=== PATIENT | male | born 1930 | race Caucasian/White ===

== ENCOUNTER 2017-05-04 17:57 | Emergency (ER) | payer OTHER ==
[~2017-05-04] VITALS: Ht 167.6 cm; Wt 70.0 kg
[~2017-05-04 17:57] MED LIST: ASPI-515 PO; DIGO125T6 PO; GLUC1500 PO; LISI-170 PO; LISI1TAB5 PO; METO-95 PO; METO50TA82 PO; OXYC-302 PO; POLY17PO5 PO; TAMS0.4C2 PO; WARF2TAB PO; WARF2TAB7 PO; WARF4TAB PO
[2017-05-04 19:04] LABS: BLOOD UREA NITROGEN 23 mg/dL (7-18)
[2017-05-04] MEDS ORDERED: WARF2TAB PO (20:15)
[2017-05-05 00:08] VITALS: BP 155/62
== END 2017-05-05 00:18 | disposition home or self-care (01) ==
LOC: ED 23:40
DX: R10.9 Unspecified abdominal pain (principal); I10 Essential (primary) hypertension; I48.91 Unspecified atrial fibrillation; Z85.46 Personal history of malignant neoplasm of prostate; Z87.442 Personal history of urinary calculi; Z92.3 Personal history of irradiation
CPT/HCPCS: 36415; 72110; 74176; 80048; 80162; 81003; 82040; 85025; 85610; 99285

== ENCOUNTER → 2017-06-17 | Outpatient (CLI) | payer OTHER | END | disposition home or self-care (01) | LOC: EDSTATUS 10:00 → CFH 10:03 | PROVIDERS: ATTEND Internal Medicine Cardiovascular Disease | DX: I08.0 Rheumatic disorders of both mitral and aortic valves (principal); I48.91 Unspecified atrial fibrillation; I48.92 Unspecified atrial flutter; Z79.01 Long term (current) use of anticoagulants; Z87.891 Personal history of nicotine dependence; Z85.038 Personal history of other malignant neoplasm of large intestine; Z85.46 Personal history of malignant neoplasm of prostate | CPT/HCPCS: 93306 ==

== ENCOUNTER 2017-09-18 18:22 | Inpatient (IN) | payer OTHER ==
[~2017-09-18] VITALS: Ht 167.6 cm; Wt 69.0 kg
[2017-09-18] MEDS ORDERED: METO-93 PO (18:44)
[2017-09-18] MEDS ORDERED: SODIUM CHLORIDE FLUSH 10ML SYR IVF ONE (19:00)
[2017-09-18 19:09] LABS: HEMATOCRIT 47.1 % (39.2-51.8); WHITE BLOOD COUNT 8.6 x10^3/uL (3.4-10)
[2017-09-18 19:20] LABS: ASPARTATE AMINO TRANSFERASE 155 U/L (15-37); BLOOD UREA NITROGEN 26 mg/dL (7-18)
[2017-09-18 19:21] LABS: IS PT STATUS REG ER OR PRE ER? YES
[2017-09-18] MEDS ORDERED: WARFARIN 2 MG TABLET PO-COUM ONE (21:00)
[2017-09-18 23:00] VITALS: BP 161/85
[2017-09-18 23:06] VITALS: BP 165/83
[2017-09-18 23:08] VITALS: BP 150/79
[2017-09-19 03:00] VITALS: BP 131/78
[2017-09-19 07:56] VITALS: BP 132/77
[2017-09-19] MEDS ORDERED: SODIUM CHLORIDE FLUSH 10ML SYR IVF SCH (09:00)
[2017-09-19] MEDS ORDERED: DIGOXIN 0.125 MG TABLET PO SCH (09:00)
[2017-09-19 12:52] VITALS: BP 148/81
[2017-09-19] MEDS ORDERED: ACETAMINOPHEN 325 MG TABLET ONE (13:14)
[2017-09-19] MEDS ORDERED: ACETAMINOPHEN 325 MG TABLET PO PRN (13:30)
[2017-09-19] MEDS ORDERED: CARV3.122 PO (15:37)
[2017-09-19] MEDS ORDERED: WARFARIN 2 MG TABLET PO-COUM ONE (18:00)
== END 2017-09-19 16:41 | disposition home or self-care (01) | DRG 74 ==
LOC: ED 21:15 → EDIP 21:19 → 5SO 22:34 → DCLOUNGE 09-19 16:29
PROVIDERS: ADMIT Family Medicine; ATTEND Family Medicine
PROC: 0HQ0XZZ Repair Scalp Skin, External Approach (ICD-10-PCS; principal; 2017-09-18)
DX: G90.8 Other disorders of autonomic nervous system (principal); I48.91 Unspecified atrial fibrillation; S09.90XA Unspecified injury of head, initial encounter; I34.0 Nonrheumatic mitral (valve) insufficiency; R55 Syncope and collapse; I10 Essential (primary) hypertension; S05.11XA Contusion of eyeball and orbital tissues, right eye, initial encounter; W18.39XA Other fall on same level, initial encounter; T45.515A Adverse effect of anticoagulants, initial encounter; Y92.89 Other specified places as the place of occurrence of the external cause; Y93.89 Activity, other specified; Y99.8 Other external cause status; Z79.01 Long term (current) use of anticoagulants; Z82.3 Family history of stroke; Z85.038 Personal history of other malignant neoplasm of large intestine; Z98.49 Cataract extraction status, unspecified eye; Z80.9 Family history of malignant neoplasm, unspecified; Z90.89 Acquired absence of other organs; Z92.21 Personal history of antineoplastic chemotherapy; Z87.891 Personal history of nicotine dependence
CPT/HCPCS: 36415; 70450; 71010; 80053; 83735; 84443; 84484; 85025; 85610; 85730; 93005; 93306; 93880; 99285

== ENCOUNTER 2017-11-17 08:00 | Observation (INO) | payer OTHER ==
[~2017-11-17] VITALS: Ht 167.6 cm; Wt 71.4 kg
[~2017-11-17 08:00] MED LIST changes: +CARV3.122 PO; +METO-93 PO
[2017-11-17] MEDS: SODIUM CHLORIDE 0.9% 1,000 ML IV SCH ×2 (08:09→13:51)
[2017-11-17] MEDS ORDERED: CEFAZOLIN PMX 1GM/50ML 50 ML IVPB ONE (08:30)
[2017-11-17 08:39] VITALS: BP 167/88
[2017-11-17] MEDS ORDERED: DIGO125T PO (08:52)
[2017-11-17] MEDS ORDERED: TUMERIC PO (08:52)
[2017-11-17] MEDS ORDERED: METO-99 PO (08:54)
[2017-11-17] MEDS ORDERED: LISI-170 PO (08:57)
[2017-11-17] MEDS ORDERED: GLUC500T11 PO (08:58)
[2017-11-17] MEDS ORDERED: WARF4TAB PO (08:59)
[2017-11-17] MEDS ORDERED: PLEASE ENTER HEIGHT AND WEIGHT MC SCH (09:00)
[2017-11-17] MEDS ORDERED: CEFAZOLIN PMX 1GM/50ML 50 ML ONE (10:01)
[2017-11-17] MEDS ORDERED: FENTANYL PF 100 MCG/2ML ONE (10:01)
[2017-11-17] MEDS ORDERED: MIDAZOLAM 1 MG/ML, 2ML ONE (10:01)
[2017-11-17] MEDS ORDERED: LIDOCAINE 2%, 20ML ONE ×3 (10:01→16:46)
[2017-11-17] MEDS ORDERED: CEFAZOLIN 1,000 MG ONE (10:01)
[2017-11-17] MEDS ORDERED: LABETALOL 5MG/ML, 20ML ONE (11:50)
[2017-11-17] MEDS ORDERED: ACETAMINOPHEN 325 MG TABLET PO PRN (13:30)
[2017-11-17 14:54] VITALS: BP 152/93
[2017-11-17 19:26] VITALS: BP 155/83
[2017-11-17] MEDS ORDERED: ASPIRIN 81 MG TABLET EC PO SCH (21:00)
[2017-11-17] MEDS: CEFAZOLIN PMX 1GM/50ML 50 ML IVPB SCH (21:27)
[2017-11-17] MEDS: SODIUM CHLORIDE FLUSH 10ML SYR IVF SCH (21:27)
[2017-11-18] MEDS: SODIUM CHLORIDE 0.9% 1,000 ML IV SCH (00:09)
[2017-11-18 00:27] VITALS: BP 145/85
[2017-11-18] MEDS: CEFAZOLIN PMX 1GM/50ML 50 ML IVPB SCH (05:24)
[2017-11-18 07:27] VITALS: BP 175/90
[2017-11-18] MEDS ORDERED: HYDROcodone/APAP 5/325 TABLET PO ONE (08:00)
[2017-11-18] MEDS ORDERED: HYDROcodone/APAP 5/325 TABLET ONE (08:04)
[2017-11-18] MEDS: SODIUM CHLORIDE FLUSH 10ML SYR IVF SCH (08:07)
[2017-11-18] MEDS ORDERED: METOPROLOL TARTRATE 100 MG TABLET PO SCH (09:00)
[2017-11-18] MEDS ORDERED: TEMPLATE NON-FORMULARY MED. (Glucosamine Hcl** 1,000 MG) PO SCH (09:00)
[2017-11-18] MEDS ORDERED: DIGOXIN 0.125 MG TABLET PO SCH (09:00)
[2017-11-18] MEDS ORDERED: LISINOPRIL 20 MG TABLET PO SCH (09:00)
[2017-11-18] MEDS ORDERED: TUMERIC PO SCH (09:00)
[2017-11-18] MEDS ORDERED: PROMETHAZINE 25 MG/ML, 1ML IM PRN (10:00)
[2017-11-18] MEDS ORDERED: WARFARIN 2 MG TABLET PO-COUM SCH (18:00)
== END 2017-11-18 10:49 | disposition home or self-care (01) ==
LOC: CACL 08:00 → 5SO 12:40 → CACL 13:09 → DCLOUNGE 11-18 10:37
PROVIDERS: ADMIT Internal Medicine Cardiovascular Disease; ATTEND Internal Medicine Cardiovascular Disease
DX: I49.5 Sick sinus syndrome (principal); I48.91 Unspecified atrial fibrillation
CPT/HCPCS: 33207; 71045; 71046; 96365; 96375; 99156; 99157; C1769; C1779; C1786; C1892; G0378; J0690; J2250; J3010; J3490; Q9967

== ENCOUNTER 2018-03-09 08:46 | Emergency (ER) | payer OTHER ==
[~2018-03-09] VITALS: Ht 167.6 cm; Wt 68.2 kg
[~2018-03-09 08:46] MED LIST changes: +DIGO125T PO; -DIGO125T6 PO; +DIGO125T81 PO; -GLUC1500 PO; +GLUC15006 PO; +GLUC500T11 PO; +METO-99 PO; +TUMERIC PO; -WARF2TAB7 PO; +WARF2TAB99 PO
[2018-03-09 08:50] VITALS: BP 171/97
== END 2018-03-09 10:11 | disposition home or self-care (01) ==
LOC: ED 09:13
DX: S01.21XD Laceration without foreign body of nose, subsequent encounter (principal); X58.XXXD Exposure to other specified factors, subsequent encounter
CPT/HCPCS: 99282

== ENCOUNTER 2018-10-05 16:53 | Inpatient (IN) | payer OTHER ==
[~2018-10-05] VITALS: Ht 165.1 cm; Wt 72.2 kg
[2018-10-05] MEDS ORDERED: ONDANSETRON 2MG/ML, 2ML IVPush ONE (17:30)
[2018-10-05 18:06] LABS: MEAN CORPUSCULAR HEMOGLOBIN 30.8 pg (27.5-34.5); MEAN CORPUSCULAR VOLUME 90.7 fL (81-97); MEAN PLATELET VOLUME 8.1 fL (7.4-10.4); PLATELET COUNT 223 x10^3/uL (130-400); RED BLOOD COUNT 5.76 x10^6/uL (4.38-5.82); RED CELL DISTRIBUTION WIDTH 14.1 % (9.4-14.8)
[2018-10-05 18:07] LABS: MD YES
[2018-10-05 18:18] LABS: ALBUMIN 3.9 g/dL (3.4-5.0); ANION GAP 10 mmol/L (5-15); CHLORIDE 107 mmol/L (98-107)
[2018-10-05 18:22] LABS: ALANINE AMINOTRANSFERASE 23 U/L (12-78); ALKALINE PHOSPHATASE 107 U/L (45-117); BILIRUBIN,TOTAL 1.3 mg/dL (0.2-1.0); CREATINE KINASE, TOTAL 80 U/L (39-308); CREATININE 1.07 mg/dL (0.7-1.3); TOTAL PROTEIN 7.3 g/dL (6.4-8.2); TROPONIN I 0.015 ng/mL (0.000-0.045)
[2018-10-05 18:31] LABS: BAND#(MANUAL) 0.45 x10^3/uL; BANDS%(MANUAL) 3 % (0-7); BASOS#(MANUAL) 0.15 x10^3/uL (0-0.1); BASOS% (MANUAL) 1 % (0-1); LYMPHS% (MANUAL) 2 % (22-44); MONOS#(MANUAL) 0.15 x10^3/uL (0.3-2.7); MONOS% (MANUAL) 1 % (2-9); SEG#(MANUAL) 14.04 x10^3/uL (1.8-6.8); SEGS% (MANUAL) 93 % (42-75)
[2018-10-05 18:32] LABS: <PLATELET ESTIMATE> ADEQUATE; <PLT MORPHOLOGY> NORMAL PLT MORPH; <RBC MORPHOLOGY> NORMAL
[2018-10-05] MEDS ORDERED: SODIUM CHLORIDE 0.9% 1,000ML IVBOLUS ONE (19:00)
[2018-10-05] MEDS ORDERED: DILTIAZEM 125 MG in DEXTROSE 5% 100 ML IV SCH (19:06)
[2018-10-05 19:27] LABS: INTERNATIONAL NORMALIZED RATIO 1.56 (0.93-1.1); PROTHROMBIN TIME 16.3 Seconds (9.6-11.5)
[2018-10-05] MEDS ORDERED: OMNIPAQUE 350 MG/ML, 100ML BOTTLE ONE (19:28)
[2018-10-05] MEDS ORDERED: AZITHROMYCIN 500 MG in SODIUM CHLORIDE 0.9% 250 ML IV ONE (20:00)
[2018-10-05] MEDS ORDERED: CEFTRIAXONE PMX 1GM/50ML 50 ML IV ONE (20:00)
[2018-10-05] MEDS ORDERED: WARFARIN SODIUM 2 MG PO SCH (20:30)
[2018-10-05] MEDS ORDERED: ACETAMINOPHEN 325 MG TABLET PO PRN (20:30)
[2018-10-05] MEDS ORDERED: AZITHROMYCIN 500 MG in SODIUM CHLORIDE 0.9% 250 ML IV SCH (20:30)
[2018-10-05] MEDS ORDERED: ONDANSETRON ODT 4 MG PO PRN (20:30)
[2018-10-05] MEDS ORDERED: METOPROLOL TARTRATE 100 MG TABLET PO SCH (20:30)
[2018-10-05] MEDS ORDERED: ONDANSETRON 2MG/ML, 2ML IVPush PRN (20:30)
[2018-10-05] MEDS ORDERED: WARFARIN SODIUM 4 MG PO SCH (20:30)
[2018-10-05] MEDS ORDERED: CEFTRIAXONE PMX 1GM/50ML 50 ML ONE (20:48)
[2018-10-05] MEDS ORDERED: WARFARIN 3 MG TABLET PO-COUM ONE (21:30)
[2018-10-05 22:00] VITALS: BP 189/74
[2018-10-05] MEDS ORDERED: DILTIAZEM 125 MG in SODIUM CHLORIDE 0.9% 100 ML IV SCH (22:00)
[2018-10-05] MEDS ORDERED: hydrALAzine 20 MG/ML, 1ML IV PRN (22:00)
[2018-10-05] MEDS: SODIUM CHLORIDE 0.9% 1,000 ML IV SCH (22:07)
[2018-10-05] MEDS: ASPIRIN 81 MG TABLET EC PO SCH (22:08)
[2018-10-05] MEDS: METOPROLOL TARTRATE 25 MG TABLET PO SCH (22:08)
[2018-10-05 23:44] LABS: MICROSCOPIC AUTO
[2018-10-05 23:47] LABS: TROPONIN I 0.044 ng/mL (0.000-0.045)
[2018-10-05 23:48] LABS: CULTURE INDICATED? NO
[2018-10-06 00:05] VITALS: BP 105/64
[2018-10-06] MEDS: METOPROLOL TARTRATE 25 MG TABLET PO SCH ×4 (04:30→20:29)
[2018-10-06 04:43] VITALS: BP 108/65
[2018-10-06 05:05] LABS: ANION GAP 10 mmol/L (5-15); CALCIUM 7.4 mg/dL (8.5-10.1); CHLORIDE 109 mmol/L (98-107); CREATININE 1.14 mg/dL (0.7-1.3)
[2018-10-06 05:07] LABS: INTERNATIONAL NORMALIZED RATIO 1.86 (0.93-1.1); MD NO; MEAN CORPUSCULAR HEMOGLOBIN 30.8 pg (27.5-34.5); MEAN CORPUSCULAR HGB CONC 34.2 g/dL (33.2-36.2); PLATELET COUNT 233 x10^3/uL (130-400); PROTHROMBIN TIME 19.3 Seconds (9.6-11.5); RED BLOOD COUNT 4.82 x10^6/uL (4.38-5.82); RED CELL DISTRIBUTION WIDTH 14.4 % (9.4-14.8)
[2018-10-06 05:09] LABS: BASOPHILS # (AUTO) 0.01 x10^3/uL (0-0.1); BASOPHILS % (AUTO) 0 % (0-1); EOSINOPHILS % (AUTO) 0 % (1-7); LYMPHOCYTES # (AUTO) 0.64 x10^3/uL (1-3.4); LYMPHOCYTES % (AUTO) 5 % (22-44); MONOCYTES # (AUTO) 0.52 x10^3/uL (0.2-0.8); MONOCYTES % (AUTO) 4 % (2-9); NEUTROPHILS # (AUTO) 13.03 x10^3/uL (1.8-6.8); NEUTROPHILS % (AUTO) 92 % (42-75)
[2018-10-06 05:19] LABS: THYROID STIMULATING HORMONE 0.169 mIU/L (0.358-3.740)
[2018-10-06] MEDS ORDERED: DILTIAZEM 125 MG in SODIUM CHLORIDE 0.9% 100 ML IV SCH (06:00)
[2018-10-06 08:13] VITALS: BP 135/67
[2018-10-06] MEDS: DIGOXIN 0.125 MG TABLET PO SCH (08:35)
[2018-10-06] MEDS ORDERED: TUMERIC PO SCH (09:00)
[2018-10-06] MEDS ORDERED: TEMPLATE NON-FORMULARY MED. (Glucosamine Hcl** 1,000 MG) PO SCH (09:00)
[2018-10-06] MEDS: CEFTRIAXONE PMX 2GM/50ML 50 ML IV SCH (09:04)
[2018-10-06 10:08] LABS: CLOSTRIDIUM DIFFICILE ANTIGEN NEGATIVE; CLOSTRIDIUM DIFFICILE TOXIN NEGATIVE (Negative)
[2018-10-06] MEDS: SODIUM CHLORIDE 0.9% 1,000 ML IV SCH (11:18)
[2018-10-06] MEDS: DOXYCYCLINE 100 MG in DEXTROSE 5% 250 ML IV SCH (15:00)
[2018-10-06 15:14] VITALS: BP 171/70
[2018-10-06] MEDS ORDERED: WARFARIN 2 MG TABLET PO-COUM ONE (18:00)
[2018-10-06] MEDS: ASPIRIN 81 MG TABLET EC PO SCH (20:29)
[2018-10-06 20:34] VITALS: BP 153/66
[2018-10-06 20:51] VITALS: BP 147/80
[2018-10-07 01:29] VITALS: BP 153/80
[2018-10-07] MEDS: SODIUM CHLORIDE 0.9% 1,000 ML IV SCH ×2 (01:47→16:56)
[2018-10-07] MEDS: DOXYCYCLINE 100 MG in DEXTROSE 5% 250 ML IV SCH ×2 (03:04→14:02)
[2018-10-07] MEDS: METOPROLOL TARTRATE 25 MG TABLET PO SCH ×4 (03:05→19:30)
[2018-10-07 03:54] LABS: ANION GAP 7 mmol/L (5-15); CHLORIDE 111 mmol/L (98-107); CREATININE 0.96 mg/dL (0.7-1.3)
[2018-10-07 04:05] LABS: BASOPHILS % (AUTO) 0 % (0-1); EOSINOPHILS # (AUTO) 0.13 x10^3/uL (0-0.4); EOSINOPHILS % (AUTO) 1 % (1-7); LYMPHOCYTES # (AUTO) 0.85 x10^3/uL (1-3.4); LYMPHOCYTES % (AUTO) 8 % (22-44); MD NO; MEAN CORPUSCULAR HEMOGLOBIN 30.8 pg (27.5-34.5); MEAN CORPUSCULAR HGB CONC 33.9 g/dL (33.2-36.2); MEAN CORPUSCULAR VOLUME 90.9 fL (81-97); MONOCYTES # (AUTO) 0.83 x10^3/uL (0.2-0.8); MONOCYTES % (AUTO) 8 % (2-9); NEUTROPHILS # (AUTO) 8.28 x10^3/uL (1.8-6.8); NEUTROPHILS % (AUTO) 82 % (42-75); PLATELET COUNT 204 x10^3/uL (130-400); RED CELL DISTRIBUTION WIDTH 14.3 % (9.4-14.8)
[2018-10-07 04:22] LABS: INTERNATIONAL NORMALIZED RATIO 2.49 (0.93-1.1); PROTHROMBIN TIME 25.5 Seconds (9.6-11.5)
[2018-10-07 07:19] VITALS: BP 149/82
[2018-10-07] MEDS: CEFTRIAXONE PMX 2GM/50ML 50 ML IV SCH (08:37)
[2018-10-07] MEDS: DIGOXIN 0.125 MG TABLET PO SCH (09:36)
[2018-10-07 11:44] LABS: TROPONIN I 0.065 ng/mL (0.000-0.045)
[2018-10-07 13:24] VITALS: BP 197/84
[2018-10-07 13:58] VITALS: BP 188/87
[2018-10-07 16:58] VITALS: BP 162/73
[2018-10-07] MEDS ORDERED: WARFARIN 2 MG TABLET PO-COUM ONE (18:00)
[2018-10-07 18:57] VITALS: BP 164/80
[2018-10-07] MEDS: ASPIRIN 81 MG TABLET EC PO SCH (19:30)
[2018-10-08 01:37] VITALS: BP 164/90
[2018-10-08] MEDS: DOXYCYCLINE 100 MG in DEXTROSE 5% 250 ML IV SCH ×2 (01:39→15:20)
[2018-10-08] MEDS: METOPROLOL TARTRATE 25 MG TABLET PO SCH ×4 (01:39→21:55)
[2018-10-08 04:52] LABS: BASOPHILS # (AUTO) 0.04 x10^3/uL (0-0.1); BASOPHILS % (AUTO) 0 % (0-1); EOSINOPHILS % (AUTO) 1 % (1-7); LYMPHOCYTES # (AUTO) 1.09 x10^3/uL (1-3.4); LYMPHOCYTES % (AUTO) 10 % (22-44); MD NO; MEAN CORPUSCULAR HEMOGLOBIN 30.5 pg (27.5-34.5); MEAN CORPUSCULAR HGB CONC 33.9 g/dL (33.2-36.2); MEAN CORPUSCULAR VOLUME 89.9 fL (81-97); MEAN PLATELET VOLUME 8.4 fL (7.4-10.4); MONOCYTES # (AUTO) 0.94 x10^3/uL (0.2-0.8); MONOCYTES % (AUTO) 8 % (2-9); NEUTROPHILS % (AUTO) 81 % (42-75); PLATELET COUNT 199 x10^3/uL (130-400); RED CELL DISTRIBUTION WIDTH 14.7 % (9.4-14.8)
[2018-10-08 05:05] LABS: ANION GAP 10 mmol/L (5-15); CALCIUM 7.9 mg/dL (8.5-10.1); CHLORIDE 108 mmol/L (98-107)
[2018-10-08 05:10] LABS: ALANINE AMINOTRANSFERASE 22 U/L (12-78); ALKALINE PHOSPHATASE 77 U/L (45-117); BILIRUBIN,TOTAL 0.9 mg/dL (0.2-1.0); CREATININE 0.78 mg/dL (0.7-1.3); FREE T4 (FREE THYROXINE) 1.25 ng/dL (0.76-1.46); TOTAL PROTEIN 5.9 g/dL (6.4-8.2)
[2018-10-08 05:10] LABS: INTERNATIONAL NORMALIZED RATIO 2.85 (0.93-1.1)
[2018-10-08] MEDS: SODIUM CHLORIDE 0.9% 1,000 ML IV SCH ×2 (05:55→21:59)
[2018-10-08 06:45] VITALS: BP 186/85
[2018-10-08] MEDS ORDERED: POTASSIUM CHLORIDE 20 MEQ TAB.ER.PRT PO ONE (07:30)
[2018-10-08] MEDS: DIGOXIN 0.125 MG TABLET PO SCH (08:52)
[2018-10-08] MEDS: CEFTRIAXONE PMX 2GM/50ML 50 ML IV SCH (08:53)
[2018-10-08 11:25] VITALS: BP 158/80
[2018-10-08 13:33] VITALS: BP 167/77
[2018-10-08] MEDS ORDERED: WARFARIN 2 MG TABLET PO-COUM ONE (18:00)
[2018-10-08 19:58] VITALS: BP 166/74
[2018-10-08 21:56] VITALS: BP 157/80
[2018-10-08] MEDS: ASPIRIN 81 MG TABLET EC PO SCH (22:25)
[2018-10-09 00:10] LABS: OCCULT BLOOD NEGATIVE (NEGATIVE)
[2018-10-09 00:42] VITALS: BP 145/84
[2018-10-09] MEDS: METOPROLOL TARTRATE 25 MG TABLET PO SCH ×2 (03:52→10:00)
[2018-10-09] MEDS: DOXYCYCLINE 100MG TABLET PO SCH ×2 (03:55→16:28)
[2018-10-09 04:55] LABS: INTERNATIONAL NORMALIZED RATIO 2.72 (0.93-1.1); PROTHROMBIN TIME 27.7 Seconds (9.6-11.5)
[2018-10-09 05:00] LABS: ANION GAP 8 mmol/L (5-15); BASOPHILS # (AUTO) 0.02 x10^3/uL (0-0.1); BASOPHILS % (AUTO) 0 % (0-1); CALCIUM 7.8 mg/dL (8.5-10.1); CHLORIDE 109 mmol/L (98-107); EOSINOPHILS # (AUTO) 0.16 x10^3/uL (0-0.4); EOSINOPHILS % (AUTO) 2 % (1-7); LYMPHOCYTES # (AUTO) 1.52 x10^3/uL (1-3.4); LYMPHOCYTES % (AUTO) 18 % (22-44); MD NO; MEAN CORPUSCULAR HEMOGLOBIN 30.2 pg (27.5-34.5); MEAN CORPUSCULAR HGB CONC 33.4 g/dL (33.2-36.2); MEAN CORPUSCULAR VOLUME 90.6 fL (81-97); MEAN PLATELET VOLUME 8.4 fL (7.4-10.4); MONOCYTES # (AUTO) 0.86 x10^3/uL (0.2-0.8); MONOCYTES % (AUTO) 10 % (2-9); NEUTROPHILS # (AUTO) 5.85 x10^3/uL (1.8-6.8); NEUTROPHILS % (AUTO) 70 % (42-75); PLATELET COUNT 226 x10^3/uL (130-400); RED BLOOD COUNT 5.09 x10^6/uL (4.38-5.82); RED CELL DISTRIBUTION WIDTH 14.6 % (9.4-14.8)
[2018-10-09 05:02] LABS: CREATININE 0.79 mg/dL (0.7-1.3)
[2018-10-09 06:52] VITALS: BP 182/98
[2018-10-09] MEDS: CEFTRIAXONE PMX 2GM/50ML 50 ML IV SCH (08:32)
[2018-10-09] MEDS: DIGOXIN 0.125 MG TABLET PO SCH (08:33)
[2018-10-09 09:59] VITALS: BP 151/88
[2018-10-09] MEDS: SODIUM CHLORIDE 0.9% 1,000 ML IV SCH (10:04)
[2018-10-09] MEDS ORDERED: METOPROLOL TARTRATE 25 MG TABLET PO ONE (11:30)
[2018-10-09] MEDS ORDERED: LISINOPRIL 20 MG TABLET ONE (11:32)
[2018-10-09] MEDS ORDERED: METOPROLOL TARTRATE 25 MG TABLET ONE (11:32)
[2018-10-09 11:36] VITALS: BP 154/74
[2018-10-09] MEDS: LISINOPRIL 20 MG TABLET PO SCH (11:37)
[2018-10-09] MEDS ORDERED: DOXY100T PO (12:42)
[2018-10-09] MEDS ORDERED: CEFD300C37 PO (12:42)
[2018-10-09 13:19] VITALS: BP 161/90
[2018-10-09] MEDS ORDERED: WARFARIN 2 MG TABLET PO-COUM ONE (18:00)
[2018-10-09 18:54] VITALS: BP 152/89
[2018-10-09] MEDS: METOPROLOL TARTRATE 50 MG TABLET PO SCH (20:59)
[2018-10-09] MEDS: ASPIRIN 81 MG TABLET EC PO SCH (20:59)
[2018-10-10] MEDS: SODIUM CHLORIDE 0.9% 1,000 ML IV SCH ×2 (00:29→14:00)
[2018-10-10 00:33] VITALS: BP 148/66
[2018-10-10] MEDS: DOXYCYCLINE 100MG TABLET PO SCH (02:54)
[2018-10-10 06:01] LABS: INTERNATIONAL NORMALIZED RATIO 2.68 (0.93-1.1); PROTHROMBIN TIME 27.4 Seconds (9.6-11.5)
[2018-10-10 06:08] VITALS: BP 146/95
[2018-10-10] MEDS: METOPROLOL TARTRATE 50 MG TABLET PO SCH ×2 (06:09→17:45)
[2018-10-10 06:41] VITALS: BP 177/77
[2018-10-10] MEDS: CEFTRIAXONE PMX 2GM/50ML 50 ML IV SCH (07:47)
[2018-10-10] MEDS: DIGOXIN 0.125 MG TABLET PO SCH (07:47)
[2018-10-10] MEDS: LISINOPRIL 20 MG TABLET PO SCH (07:47)
[2018-10-10 12:29] VITALS: BP 155/69
[2018-10-10] MEDS ORDERED: WARFARIN 2 MG TABLET PO-COUM ONE (18:00)
== END 2018-10-10 18:10 | DRG 871 ==
LOC: ED 19:24 → EDIP 20:02 → 5SO 21:06
PROVIDERS: ADMIT Hospitalist; ATTEND Hospitalist
DX: A41.9 Sepsis, unspecified organism (principal); J18.1 Lobar pneumonia, unspecified organism; D68.69 Other thrombophilia; G93.40 Encephalopathy, unspecified; E86.0 Dehydration; F03.90 Unspecified dementia, unspecified severity, without behavioral disturbance, psychotic disturbance, mood disturbance, and anxiety; I10 Essential (primary) hypertension; I35.8 Other nonrheumatic aortic valve disorders; I48.2 Chronic atrial fibrillation; M19.90 Unspecified osteoarthritis, unspecified site; K40.90 Unilateral inguinal hernia, without obstruction or gangrene, not specified as recurrent; K57.30 Diverticulosis of large intestine without perforation or abscess without bleeding; Z79.01 Long term (current) use of anticoagulants; Z85.46 Personal history of malignant neoplasm of prostate; Z87.891 Personal history of nicotine dependence; Z95.0 Presence of cardiac pacemaker; Z79.82 Long term (current) use of aspirin; Z79.899 Other long term (current) drug therapy; Z90.49 Acquired absence of other specified parts of digestive tract
CPT/HCPCS: 36415; 71045; 74177; 80048; 80053; 80162; 81001; 82272; 82550; 83605; 83690; 83735; 84100; 84439; 84443; 84484; 85025; 85610; 87040; 87324; 89055; 93005; 93306; 96374; 96375; G0378; J0456; J0696; J7060; Q9967; 92523-GN; J0360; J7030; J7050

== ENCOUNTER 2019-08-14 11:37 | Inpatient (IN) | payer MEDICARE ==
[~2019-08-14] VITALS: Ht 167.6 cm; Wt 63.0 kg
[~2019-08-14 11:37] MED LIST changes: +CEFD300C37 PO; +DOXY100T PO; +ERGO500017 PO; +LISI1TAB19 PO; -LISI1TAB5 PO; +RIVA20TA PO
[2019-08-14] MEDS ORDERED: FAMOTIDINE 20 MG/2 ML IV ONE (12:00)
[2019-08-14] MEDS ORDERED: FAMOTIDINE 20 MG/2 ML ONE (12:03)
--- NOTE | 2019-08-14 12:11 | NUR ---
MEDICATED PATIENT WITH PEPCID. PT RESTING WITH NO COMPLAINTS.
[2019-08-14 12:16] LABS: BASOPHILS # (AUTO) 0.02 x10^3/uL (0-0.1); BASOPHILS % (AUTO) 0 % (0-1); EOSINOPHILS # (AUTO) 0.06 x10^3/uL (0-0.4); EOSINOPHILS % (AUTO) 1 % (1-7); LYMPHOCYTES # (AUTO) 1.08 x10^3/uL (1-3.4); LYMPHOCYTES % (AUTO) 8 % (22-44); MD NO; MEAN CORPUSCULAR HGB CONC 33.3 g/dL (33.2-36.2); MEAN CORPUSCULAR VOLUME 93.1 fL (81-97); MEAN PLATELET VOLUME 7.5 fL (7.4-10.4); MONOCYTES # (AUTO) 1.06 x10^3/uL (0.2-0.8); MONOCYTES % (AUTO) 8 % (2-9); NEUTROPHILS # (AUTO) 10.98 x10^3/uL (1.8-6.8); NEUTROPHILS % (AUTO) 83 % (42-75); PLATELET COUNT 265 x10^3/uL (130-400); RED BLOOD COUNT 5.26 x10^6/uL (4.38-5.82); RED CELL DISTRIBUTION WIDTH 14.5 % (9.4-14.8)
[2019-08-14 12:29] LABS: ALBUMIN 3.6 g/dL (3.4-5.0); ANION GAP 7 mmol/L (5-15); CALCIUM 8.3 mg/dL (8.5-10.1); CHLORIDE 106 mmol/L (98-107); CREATININE 0.84 mg/dL (0.7-1.3)
[2019-08-14 12:47] LABS: ALKALINE PHOSPHATASE 100 U/L (45-117); BILIRUBIN,TOTAL 1.4 mg/dL (0.2-1.0)
[2019-08-14 12:52] LABS: TROPONIN I 0.265 ng/mL (0.000-0.045)
[2019-08-14 13:12] LABS: ALANINE AMINOTRANSFERASE 17 U/L (12-78)
[2019-08-14] MEDS ORDERED: OMNIPAQUE 350 MG/ML, 100ML BOTTLE ONE (14:14)
[2019-08-14] MEDS ORDERED: HEPARIN 5,000 UNITS/ML, 1ML IV ONE (14:30)
[2019-08-14] MEDS ORDERED: ONDANSETRON ODT 4 MG PO PRN (15:00)
[2019-08-14] MEDS ORDERED: ACETAMINOPHEN 325 MG TABLET PO PRN (15:00)
[2019-08-14] MEDS ORDERED: ONDANSETRON 2MG/ML, 2ML IVPush PRN (15:00)
[2019-08-14] MEDS ORDERED: morphine SULFATE 10 MG/ML, 1ML IVPush PRN (15:00)
[2019-08-14] MEDS ORDERED: NITROGLYCERIN 0.4 MG BOTTLE (25 TABS) SL PRN (15:00)
[2019-08-14] MEDS ORDERED: ERGOCALCIFEROL 50,000 UNIT CAPSULE PO SCH (15:00)
[2019-08-14] MEDS ORDERED: HEPARIN 25,000 UNITS/500ML PMX 500 ML ONE (15:01)
[2019-08-14] MEDS ORDERED: HEPARIN 5,000 UNITS/ML, 1ML ONE (15:01)
[2019-08-14] MEDS ORDERED: ASPIRIN 81 MG TABLET EC ONE (15:02)
[2019-08-14] MEDS ORDERED: METOPROLOL TARTRATE 50 MG TABLET ONE (15:02)
[2019-08-14] MEDS: ASPIRIN 81 MG TABLET EC PO SCH ×2 (15:17→21:16)
[2019-08-14] MEDS: METOPROLOL TARTRATE 100 MG TABLET PO SCH ×2 (15:18→21:17)
[2019-08-14] MEDS: HEPARIN 25,000 UNITS/500ML PMX 500 ML IV PRN (15:23)
--- NOTE | 2019-08-14 15:25 | NUR ---
HEPARIN BOLUS GIVEN AND HEPARIN DRIP STARTED. VS UPDATED AND WNL. PT ALSO MEDICATED WITH PO ASA AND METOPROLOL.
[2019-08-14 15:37] LABS: HEMOGLOBIN A1C 5.9 % (4.2-6.3)
--- NOTE | 2019-08-14 16:13 | NUR ---
SECOND PIV STARTED FOR HOSPITALIZATION. PT RESTING WITH NO COMPLAINTS.
--- NOTE | 2019-08-14 16:26 | NUR ---
PATIENT WANTED TO VOID BUT WAS UNABLE TO AT FIRST ATTEMPT. BLADDER SCAN PERFORMED WITH A RESULT OF 521ML. UPON SECOND ATTEMPT, PATIENT WAS ABLE TO VOID APPROX 100ML WITH SOME DRIBBLING IN BRIEF PRIOR TO VOIDING. DR. RIZO NOTIFIED. UA ORDERED AND SENT TO LAB.
[2019-08-14 16:40] LABS: MICROSCOPIC NOT IND
[2019-08-14 16:47] LABS: CULTURE INDICATED? NO
--- NOTE | 2019-08-14 17:12 | NUR ---
VS UPDATED AND WITHIN NORMAL LIMITS. PT RESTING. AT BEDSIDE.
--- NOTE | 2019-08-14 17:33 | NUR ---
PATIENT C/O ABD PAIN BUT IS REFUSING ANY PAIN MEDICINE AT THIS TIME.
--- NOTE | 2019-08-14 17:47 | NUR ---
PHARMACY REQUEST SLIP SENT TO PHARMACY FOR VITAMIN D2 AND LISINOPRIL, PATIENT IS A TELE HOLD. AWAITING HOSPITAL BED.
--- NOTE | 2019-08-14 17:47 | NUR ---
AVIVA DANG) PHONE NUMBER IS . Addendum: 08/14/19 at 1749 by MICHELLE CORECTION TO PHONE NUMBER. CORRECT NUMBER IS .
[2019-08-14 18:16] LABS: TROPONIN I 0.289 ng/mL (0.000-0.045)
--- NOTE | 2019-08-14 18:17 | NUR ---
[facility] TELEPHONE HAND-OFF REPORT GIVEN TO RNs JUSTICE AND CHRISTINA. PT READY TO GO TO ROOM 510-1.
[2019-08-14] MEDS ORDERED: LISINOPRIL 20 MG TABLET ONE (18:20)
[2019-08-14] MEDS: LISINOPRIL 20 MG TABLET PO SCH (18:22)
--- NOTE | 2019-08-14 18:47 | NUR ---
CALLED DR. Ayah MCFARLAND AND NOTIFIED HIM OF SECOND TROPONIN TRENDING UP HIGHER THAN THE FIRST AND GAVE HIM THE VALUE. ALSO NOTIFIED DR. MCFARLAND OF PATIENT'S TROUBLE VOIDING EARLIER AND BLADDER SCAN VALUE OF 521ML. PRN BLADDER SCAN AND POST VOID STRAIGHT CATH ORDER RECEIVED AND ENTERED INTO [employer].
--- NOTE | 2019-08-14 18:50 | NUR ---
CALLED TELE FLOOR AND NOTIFIED ADELITA VASQUEZ THAT I NOTIFIED DR. MCFARLAND OF TRENDING UP TROPONIN LEVELS AND OF PATIENT'S TROUBLE VOIDING. PRN BLADDER SCAN/STRAIGHT CATH ORDER PLACED. PT TO GO TO HOSPITAL ROOM SOON.
[2019-08-14 19:48] VITALS: BP 117/78
[2019-08-14] MEDS: HEPARIN 5,000 UNITS/ML, 1ML IV PRN (22:43)
[2019-08-15] VITALS (7 sets, daily range): BP systolic 114–170; BP diastolic 67–91
[2019-08-15 00:53] LABS: TROPONIN I 0.214 ng/mL (0.000-0.045)
[2019-08-15 05:29] LABS: BASOPHILS # (AUTO) 0.02 x10^3/uL (0-0.1); BASOPHILS % (AUTO) 0 % (0-1); EOSINOPHILS % (AUTO) 0 % (1-7); LYMPHOCYTES # (AUTO) 1.26 x10^3/uL (1-3.4); LYMPHOCYTES % (AUTO) 7 % (22-44); MD NO; MEAN CORPUSCULAR HEMOGLOBIN 30.9 pg (27.5-34.5); MEAN CORPUSCULAR VOLUME 93.4 fL (81-97); MEAN PLATELET VOLUME 8.4 fL (7.4-10.4); MONOCYTES # (AUTO) 1.21 x10^3/uL (0.2-0.8); MONOCYTES % (AUTO) 7 % (2-9); NEUTROPHILS # (AUTO) 15.34 x10^3/uL (1.8-6.8); NEUTROPHILS % (AUTO) 86 % (42-75); PLATELET COUNT 280 x10^3/uL (130-400); RED CELL DISTRIBUTION WIDTH 14.4 % (9.4-14.8)
[2019-08-15] MEDS: HEPARIN 5,000 UNITS/ML, 1ML IV PRN ×2 (05:35→12:31)
[2019-08-15 05:37] LABS: CHLORIDE 103 mmol/L (98-107)
[2019-08-15 05:50] LABS: ANION GAP 7 mmol/L (5-15); CHOLESTEROL, TOTAL 134 mg/dL (140-239); CREATININE 0.89 mg/dL (0.7-1.3); HDL CHOL % 34 % (26-37); HDL CHOLESTEROL (DIRECT) 45 mg/dL (40-60); LDL CHOLESTEROL,CALCULATED 74 mg/dL (54-169); LDL/HDL RATIO 1.6 (0.5-3.0); TRIGLYCERIDES 73 mg/dL (50-200); VLDL CHOLESTEROL 15 mg/dL (0-25)
[2019-08-15] MEDS ORDERED: LISINOPRIL 20 MG TABLET PO SCH (09:00)
[2019-08-15] MEDS: DIGOXIN 0.125 MG TABLET PO SCH (09:53)
[2019-08-15] MEDS: METOPROLOL TARTRATE 100 MG TABLET PO SCH ×2 (09:53→20:30)
[2019-08-15] MEDS: LISINOPRIL 20 MG TABLET PO SCH (09:54)
[2019-08-15 13:28] LABS: TROPONIN I 0.163 ng/mL (0.000-0.045)
[2019-08-15] MEDS: HEPARIN 25,000 UNITS/500ML PMX 500 ML IV PRN (18:12)
[2019-08-15] MEDS: ATORVASTATIN 80 MG TABLET PO SCH (20:30)
[2019-08-15] MEDS ORDERED: hydrALAzine 20 MG/ML, 1ML ONE (21:20)
[2019-08-15] MEDS ORDERED: hydrALAzine 20 MG/ML, 1ML IV ONE (21:30)
[2019-08-16 00:45] VITALS: BP 109/61
[2019-08-16 06:08] LABS: BASOPHILS # (AUTO) 0.09 x10^3/uL (0-0.1); BASOPHILS % (AUTO) 1 % (0-1); EOSINOPHILS # (AUTO) 0.04 x10^3/uL (0-0.4); EOSINOPHILS % (AUTO) 0 % (1-7); LYMPHOCYTES # (AUTO) 1.21 x10^3/uL (1-3.4); LYMPHOCYTES % (AUTO) 9 % (22-44); MD NO; MEAN CORPUSCULAR HEMOGLOBIN 30.7 pg (27.5-34.5); MEAN CORPUSCULAR HGB CONC 32.9 g/dL (33.2-36.2); MEAN CORPUSCULAR VOLUME 93.5 fL (81-97); MEAN PLATELET VOLUME 8.1 fL (7.4-10.4); MONOCYTES # (AUTO) 1.33 x10^3/uL (0.2-0.8); MONOCYTES % (AUTO) 10 % (2-9); NEUTROPHILS # (AUTO) 11.08 x10^3/uL (1.8-6.8); NEUTROPHILS % (AUTO) 81 % (42-75); PLATELET COUNT 257 x10^3/uL (130-400); RED BLOOD COUNT 5.22 x10^6/uL (4.38-5.82); RED CELL DISTRIBUTION WIDTH 14.9 % (9.4-14.8)
[2019-08-16 06:15] LABS: ALBUMIN 3.1 g/dL (3.4-5.0); ANION GAP 9 mmol/L (5-15); CALCIUM 8.6 mg/dL (8.5-10.1); CHLORIDE 104 mmol/L (98-107); CREATININE 0.89 mg/dL (0.7-1.3)
[2019-08-16 07:20] VITALS: BP 128/80
[2019-08-16] MEDS: LISINOPRIL 20 MG TABLET PO SCH (09:55)
[2019-08-16] MEDS: METOPROLOL TARTRATE 100 MG TABLET PO SCH ×2 (09:55→20:15)
[2019-08-16] MEDS: DIGOXIN 0.125 MG TABLET PO SCH (09:55)
[2019-08-16 13:50] VITALS: BP 114/72
[2019-08-16 19:26] VITALS: BP 145/86
[2019-08-16] MEDS: ATORVASTATIN 80 MG TABLET PO SCH (20:15)
[2019-08-17 00:15] VITALS: BP 134/68
[2019-08-17 05:21] LABS: BASOPHILS # (AUTO) 0.03 x10^3/uL (0-0.1); BASOPHILS % (AUTO) 0 % (0-1); EOSINOPHILS % (AUTO) 1 % (1-7); LYMPHOCYTES # (AUTO) 1.18 x10^3/uL (1-3.4); LYMPHOCYTES % (AUTO) 9 % (22-44); MD NO; MEAN CORPUSCULAR HEMOGLOBIN 30.8 pg (27.5-34.5); MEAN CORPUSCULAR HGB CONC 33.3 g/dL (33.2-36.2); MEAN CORPUSCULAR VOLUME 92.3 fL (81-97); MEAN PLATELET VOLUME 8.9 fL (7.4-10.4); MONOCYTES # (AUTO) 1.29 x10^3/uL (0.2-0.8); MONOCYTES % (AUTO) 10 % (2-9); NEUTROPHILS # (AUTO) 10.76 x10^3/uL (1.8-6.8); NEUTROPHILS % (AUTO) 81 % (42-75); PLATELET COUNT 253 x10^3/uL (130-400); RED BLOOD COUNT 5.08 x10^6/uL (4.38-5.82); RED CELL DISTRIBUTION WIDTH 14.1 % (9.4-14.8)
[2019-08-17 05:31] LABS: ALBUMIN 2.9 g/dL (3.4-5.0); ANION GAP 9 mmol/L (5-15); CALCIUM 8.4 mg/dL (8.5-10.1); CHLORIDE 102 mmol/L (98-107)
[2019-08-17 07:22] VITALS: BP 114/74
[2019-08-17] MEDS: LISINOPRIL 20 MG TABLET PO SCH (08:52)
[2019-08-17] MEDS: DIGOXIN 0.125 MG TABLET PO SCH (08:52)
[2019-08-17] MEDS: METOPROLOL TARTRATE 100 MG TABLET PO SCH (08:52)
[2019-08-17] MEDS ORDERED: ATOR10TA9 PO (13:40)
[2019-08-17 13:44] VITALS: BP 129/60
== END 2019-08-17 16:19 | DRG 814 ==
LOC: ED 14:41 → EDIP 14:47 → 5SO 18:56
PROVIDERS: ADMIT Family Medicine; ATTEND Family Medicine
DX: D73.5 Infarction of spleen (principal); I61.1 Nontraumatic intracerebral hemorrhage in hemisphere, cortical; I48.20 Chronic atrial fibrillation, unspecified; F03.90 Unspecified dementia, unspecified severity, without behavioral disturbance, psychotic disturbance, mood disturbance, and anxiety; I11.9 Hypertensive heart disease without heart failure; Z79.01 Long term (current) use of anticoagulants; Z85.038 Personal history of other malignant neoplasm of large intestine; Z85.46 Personal history of malignant neoplasm of prostate; Z87.891 Personal history of nicotine dependence; Z91.14 Patient's other noncompliance with medication regimen; Z95.0 Presence of cardiac pacemaker
CPT/HCPCS: 36415; 70450; 71045; 71275; 74177; 80048; 80053; 80061; 80069; 81003; 83036; 83690; 83735; 83880; 84484; 85025; 85520; 93005; 93880; 99285; G0378; J1644; Q0162; Q9967; J0360; J3490

== ENCOUNTER 2019-10-12 14:16 | Inpatient (IN) | payer MEDICARE ==
[~2019-10-12] VITALS: Ht 167.6 cm; Wt 70.1 kg
[~2019-10-12 14:16] MED LIST changes: +ATOR10TA9 PO
--- NOTE | 2019-10-12 14:53 | NUR ---
PT TO ED WITH N/V/D 1D FROM [facility], PER EMS THERE IS A [place]OVIRUS OUTBREAK AT FACILITY. 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 PT PLACED ON MONITOR. SON AT BEDSIDE, STATES PTS DEFICITS ARE BASELINE AFTER STROKE.
[2019-10-12] MEDS ORDERED: PIPERACILLIN/TAZO/PMX 3.375GM 50 ML IVPB ONE (15:00)
[2019-10-12 15:03] LABS: MEAN CORPUSCULAR HEMOGLOBIN 30.7 pg (27.5-34.5); MEAN CORPUSCULAR HGB CONC 33.1 g/dL (33.2-36.2); MEAN CORPUSCULAR VOLUME 92.6 fL (81-97); MEAN PLATELET VOLUME 7.7 fL (7.4-10.4); PLATELET COUNT 254 x10^3/uL (130-400); RED BLOOD COUNT 5.05 x10^6/uL (4.38-5.82); RED CELL DISTRIBUTION WIDTH 15.2 % (9.4-14.8)
[2019-10-12 15:17] LABS: ALANINE AMINOTRANSFERASE 20 U/L (12-78); ALBUMIN 3.6 g/dL (3.4-5.0); ANION GAP 10 mmol/L (5-15); CALCIUM 8.4 mg/dL (8.5-10.1); CHLORIDE 108 mmol/L (98-107); CREATININE 0.99 mg/dL (0.7-1.3)
[2019-10-12 15:21] LABS: ALKALINE PHOSPHATASE 113 U/L (45-117); BILIRUBIN,TOTAL 1.5 mg/dL (0.2-1.0); TROPONIN I 0.045 ng/mL (0.000-0.045)
[2019-10-12] MEDS ORDERED: PIPERACILLIN/TAZO/PMX 3.375GM 50 ML ONE (15:28)
[2019-10-12 15:48] LABS: INTERNATIONAL NORMALIZED RATIO 1.18 (0.93-1.1); PROTHROMBIN TIME 12.3 Seconds (9.6-11.5)
[2019-10-12 16:08] LABS: BASOPHILS % (AUTO) 0 % (0-1); EOSINOPHILS # (AUTO) 0.01 x10^3/uL (0-0.4); EOSINOPHILS % (AUTO) 0 % (1-7); LYMPHOCYTES # (AUTO) 0.38 x10^3/uL (1-3.4); LYMPHOCYTES % (AUTO) 3 % (22-44); MONOCYTES % (AUTO) 1 % (2-9); NEUTROPHILS % (AUTO) 96 % (42-75)
[2019-10-12 16:09] LABS: MD SCAN
--- NOTE | 2019-10-12 16:12 | NUR ---
REPORT TO SEBASTIEN UREÑA, PT MOVED TO ROOM 17. IV ZOSYN INFUSING AFTER BLOOD CULTURES DRAWN.
--- NOTE | 2019-10-12 16:36 | NUR ---
ASSUMED CARE FOR THIS PT.
--- NOTE | 2019-10-12 17:20 | NUR ---
PT ASLEEP VSS AND AWAITING ADMIT MD AND ORDERS.
[2019-10-12] MEDS ORDERED: hydrALAzine 20 MG/ML, 1ML IVPush PRN (17:30)
[2019-10-12] MEDS ORDERED: LABETALOL 5MG/ML, 20ML IVPush PRN (17:30)
[2019-10-12] MEDS ORDERED: LACTATED RINGERS 1,000 ML IV SCH (17:30)
[2019-10-12] MEDS ORDERED: ACETAMINOPHEN 325 MG TABLET PO PRN (17:30)
[2019-10-12] MEDS ORDERED: TEMAZEPAM 15 MG CAPSULE PO PRN (17:30)
[2019-10-12] MEDS ORDERED: GUAIFENESIN/DM 200-20MG, 10ML UDC PO PRN (17:30)
[2019-10-12] MEDS ORDERED: ONDANSETRON 2MG/ML, 2ML IVPush PRN (17:30)
[2019-10-12] MEDS ORDERED: HYDROmorphone 2 MG/ML, 1ML IVPush PRN (17:30)
[2019-10-12] MEDS ORDERED: BUTALB/APAP/CAFFEINE 50MG/325MG/40MG PO PRN ×2 (17:30)
[2019-10-12] MEDS ORDERED: ONDANSETRON ODT 4 MG PO PRN (17:30)
--- NOTE | 2019-10-12 17:58 | NUR ---
PT TO CT SCAN
--- NOTE | 2019-10-12 19:58 | NUR ---
PT RESTING ON GURNEY, EYES CLOSED. NADN. VSS
--- NOTE | 2019-10-12 20:25 | NUR ---
REPORT CALLED TO FLOOR RN ALL QUESTIONS ADDRESSED
[2019-10-12] MEDS ORDERED: CALCIUM POLYCARBOPHIL 625 MG TABLET PO SCH (21:00)
[2019-10-12 21:22] VITALS: BP 128/72
[2019-10-12] MEDS ORDERED: LABETALOL 5 MG/ML SYR. (IV ONLY) IVPush PRN (22:30)
[2019-10-13 00:30] VITALS: BP 130/82
[2019-10-13 02:42] VITALS: BP 147/69
[2019-10-13 05:28] LABS: BASOPHILS # (AUTO) 0.02 x10^3/uL (0-0.1); BASOPHILS % (AUTO) 0 % (0-1); EOSINOPHILS # (AUTO) 0.06 x10^3/uL (0-0.4); EOSINOPHILS % (AUTO) 1 % (1-7); LYMPHOCYTES # (AUTO) 1.64 x10^3/uL (1-3.4); LYMPHOCYTES % (AUTO) 13 % (22-44); MD NO; MEAN CORPUSCULAR HEMOGLOBIN 31.4 pg (27.5-34.5); MEAN CORPUSCULAR HGB CONC 33.4 g/dL (33.2-36.2); MEAN PLATELET VOLUME 8.1 fL (7.4-10.4); MONOCYTES # (AUTO) 1.17 x10^3/uL (0.2-0.8); MONOCYTES % (AUTO) 9 % (2-9); NEUTROPHILS % (AUTO) 77 % (42-75); PLATELET COUNT 215 x10^3/uL (130-400); RED BLOOD COUNT 4.79 x10^6/uL (4.38-5.82); RED CELL DISTRIBUTION WIDTH 15.9 % (9.4-14.8)
[2019-10-13 05:48] LABS: CHLORIDE 109 mmol/L (98-107)
[2019-10-13 05:58] LABS: ANION GAP 8 mmol/L (5-15); CALCIUM 8.2 mg/dL (8.5-10.1); CREATININE 1.36 mg/dL (0.7-1.3)
[2019-10-13 07:50] VITALS: BP 138/83
[2019-10-13 10:40] VITALS: BP 134/74
[2019-10-13 13:46] VITALS: BP 115/73
[2019-10-13 18:28] VITALS: BP 135/71
[2019-10-13 20:16] LABS: MICROSCOPIC NOT IND
[2019-10-13 20:22] LABS: CULTURE INDICATED? NO
[2019-10-14 03:24] VITALS: BP 134/49
[2019-10-14 06:44] LABS: BASOPHILS # (AUTO) 0.05 x10^3/uL (0-0.1); BASOPHILS % (AUTO) 1 % (0-1); EOSINOPHILS # (AUTO) 0.31 x10^3/uL (0-0.4); EOSINOPHILS % (AUTO) 4 % (1-7); LYMPHOCYTES # (AUTO) 1.11 x10^3/uL (1-3.4); LYMPHOCYTES % (AUTO) 14 % (22-44); MD NO; MEAN CORPUSCULAR HEMOGLOBIN 30.9 pg (27.5-34.5); MEAN CORPUSCULAR HGB CONC 32.8 g/dL (33.2-36.2); MEAN CORPUSCULAR VOLUME 94.1 fL (81-97); MEAN PLATELET VOLUME 8.2 fL (7.4-10.4); MONOCYTES # (AUTO) 0.74 x10^3/uL (0.2-0.8); MONOCYTES % (AUTO) 9 % (2-9); NEUTROPHILS # (AUTO) 5.85 x10^3/uL (1.8-6.8); NEUTROPHILS % (AUTO) 73 % (42-75); PLATELET COUNT 221 x10^3/uL (130-400); RED BLOOD COUNT 4.41 x10^6/uL (4.38-5.82)
[2019-10-14 06:47] VITALS: BP 167/71
[2019-10-14 06:52] LABS: CHLORIDE 108 mmol/L (98-107)
[2019-10-14 06:56] LABS: ALANINE AMINOTRANSFERASE 18 U/L (12-78); ALBUMIN 2.9 g/dL (3.4-5.0); ALKALINE PHOSPHATASE 85 U/L (45-117); ANION GAP 8 mmol/L (5-15); BILIRUBIN,TOTAL 1.1 mg/dL (0.2-1.0); CALCIUM 8.2 mg/dL (8.5-10.1); TOTAL PROTEIN 5.9 g/dL (6.4-8.2)
[2019-10-14] MEDS ORDERED: ERGOCALCIFEROL 50,000 UNIT CAPSULE PO SCH (08:00)
[2019-10-14 08:03] LABS: CLOSTRIDIUM DIFFICILE ANTIGEN NEGATIVE; CLOSTRIDIUM DIFFICILE TOXIN NEGATIVE (Negative)
[2019-10-14] MEDS: DIGOXIN 0.125 MG TABLET PO SCH (08:50)
[2019-10-14] MEDS: TAMSULOSIN 0.4 MG CAP.ER.24H PO SCH (08:50)
[2019-10-14] MEDS: LACTATED RINGERS 1,000 ML IV SCH ×2 (08:50→23:00)
[2019-10-14] MEDS: METOPROLOL TARTRATE 100 MG TABLET PO SCH ×2 (08:50→22:07)
[2019-10-14] MEDS: LISINOPRIL 20 MG TABLET PO SCH (12:34)
[2019-10-14 12:57] VITALS: BP 155/77
[2019-10-14] MEDS: GUAIFENESIN 200 MG TABLET PO SCH ×2 (17:57→22:16)
[2019-10-14] MEDS: AMPICILLIN/SULBACTAM 3 GM in SODIUM CHLORIDE 0.9% 100 ML IV SCH ×2 (17:58→23:34)
[2019-10-14 19:19] VITALS: BP 167/93
[2019-10-14] MEDS: ATORVASTATIN 10 MG TABLET PO SCH (22:07)
[2019-10-14] MEDS: DOXYCYCLINE 100MG TABLET PO SCH (22:14)
[2019-10-15 01:27] VITALS: BP 150/85
[2019-10-15] MEDS: GUAIFENESIN 200 MG TABLET PO SCH ×4 (05:25→22:43)
[2019-10-15] MEDS: RIVAROXABAN 20 MG TABLET PO SCH (05:25)
[2019-10-15] MEDS: AMPICILLIN/SULBACTAM 3 GM in SODIUM CHLORIDE 0.9% 100 ML IV SCH ×4 (05:25→23:44)
[2019-10-15 05:49] LABS: BASOPHILS # (AUTO) 0.05 x10^3/uL (0-0.1); BASOPHILS % (AUTO) 1 % (0-1); EOSINOPHILS # (AUTO) 0.53 x10^3/uL (0-0.4); EOSINOPHILS % (AUTO) 6 % (1-7); LYMPHOCYTES # (AUTO) 1.29 x10^3/uL (1-3.4); LYMPHOCYTES % (AUTO) 15 % (22-44); MD NO; MEAN CORPUSCULAR HEMOGLOBIN 31.3 pg (27.5-34.5); MEAN CORPUSCULAR VOLUME 94.6 fL (81-97); MEAN PLATELET VOLUME 8.1 fL (7.4-10.4); MONOCYTES # (AUTO) 0.77 x10^3/uL (0.2-0.8); MONOCYTES % (AUTO) 9 % (2-9); NEUTROPHILS # (AUTO) 5.73 x10^3/uL (1.8-6.8); NEUTROPHILS % (AUTO) 68 % (42-75); PLATELET COUNT 231 x10^3/uL (130-400); RED BLOOD COUNT 4.05 x10^6/uL (4.38-5.82); RED CELL DISTRIBUTION WIDTH 15.4 % (9.4-14.8)
[2019-10-15 06:12] LABS: ALANINE AMINOTRANSFERASE 20 U/L (12-78); ALBUMIN 2.8 g/dL (3.4-5.0); ANION GAP 7 mmol/L (5-15); CHLORIDE 111 mmol/L (98-107)
[2019-10-15 06:15] LABS: ALKALINE PHOSPHATASE 81 U/L (45-117); CREATININE 0.92 mg/dL (0.7-1.3); TOTAL PROTEIN 5.5 g/dL (6.4-8.2)
[2019-10-15 07:02] VITALS: BP 161/88
[2019-10-15] MEDS: TAMSULOSIN 0.4 MG CAP.ER.24H PO SCH (10:25)
[2019-10-15] MEDS: DIGOXIN 0.125 MG TABLET PO SCH (10:25)
[2019-10-15] MEDS: LISINOPRIL 20 MG TABLET PO SCH (10:26)
[2019-10-15] MEDS: DOXYCYCLINE 100MG TABLET PO SCH ×2 (10:26→22:43)
[2019-10-15] MEDS: METOPROLOL TARTRATE 100 MG TABLET PO SCH ×2 (10:26→22:43)
[2019-10-15] MEDS: LACTATED RINGERS 1,000 ML IV SCH (11:19)
[2019-10-15 15:07] VITALS: BP 147/78
[2019-10-15] MEDS ORDERED: DOXY100T PO ×2 (16:21)
[2019-10-15] MEDS ORDERED: AMOX1TAB64 PO ×2 (16:21)
[2019-10-15] MEDS ORDERED: TAMS-11 PO (16:21)
[2019-10-15] MEDS ORDERED: GUAI200T37 PO (16:21)
[2019-10-15 19:36] VITALS: BP 142/79
[2019-10-15] MEDS: ATORVASTATIN 10 MG TABLET PO SCH (22:43)
[2019-10-16 01:17] VITALS: BP 137/74
[2019-10-16] MEDS: LACTATED RINGERS 1,000 ML IV SCH ×2 (01:53→12:25)
[2019-10-16] MEDS: AMPICILLIN/SULBACTAM 3 GM in SODIUM CHLORIDE 0.9% 100 ML IV SCH ×2 (06:19→12:23)
[2019-10-16] MEDS: RIVAROXABAN 20 MG TABLET PO SCH (06:22)
[2019-10-16] MEDS: GUAIFENESIN 200 MG TABLET PO SCH ×4 (06:22→19:59)
[2019-10-16 07:30] VITALS: BP 183/90
[2019-10-16] MEDS: METOPROLOL TARTRATE 100 MG TABLET PO SCH ×2 (09:50→19:58)
[2019-10-16] MEDS: LISINOPRIL 20 MG TABLET PO SCH (09:50)
[2019-10-16] MEDS: TAMSULOSIN 0.4 MG CAP.ER.24H PO SCH (09:50)
[2019-10-16] MEDS: DOXYCYCLINE 100MG TABLET PO SCH ×2 (09:50→19:58)
[2019-10-16] MEDS: DIGOXIN 0.125 MG TABLET PO SCH (09:50)
[2019-10-16 14:13] VITALS: BP 169/74
[2019-10-16 19:34] VITALS: BP 133/92
[2019-10-16] MEDS: AMOXICILLIN/CLAV 875-125MG TABLET PO SCH (19:58)
[2019-10-16] MEDS: ATORVASTATIN 10 MG TABLET PO SCH (19:58)
[2019-10-16] MEDS ORDERED: DOXY100T PO (22:50)
[2019-10-16] MEDS ORDERED: AMOX1TAB64 PO (22:50)
[2019-10-17 01:19] VITALS: BP 128/86
[2019-10-17] MEDS: GUAIFENESIN 200 MG TABLET PO SCH ×3 (05:44→15:53)
[2019-10-17] MEDS ORDERED: RIVAROXABAN 15 MG TABLET PO SCH (06:00)
[2019-10-17 08:00] VITALS: BP 174/71
[2019-10-17] MEDS: DOXYCYCLINE 100MG TABLET PO SCH (08:40)
[2019-10-17] MEDS: AMOXICILLIN/CLAV 875-125MG TABLET PO SCH (08:40)
[2019-10-17] MEDS: LISINOPRIL 20 MG TABLET PO SCH (08:40)
[2019-10-17] MEDS: TAMSULOSIN 0.4 MG CAP.ER.24H PO SCH (08:40)
[2019-10-17] MEDS: METOPROLOL TARTRATE 100 MG TABLET PO SCH (08:41)
[2019-10-17] MEDS: DIGOXIN 0.125 MG TABLET PO SCH (08:43)
[2019-10-17 16:15] VITALS: BP 180/78
== END 2019-10-17 17:58 | DRG 177 ==
LOC: ED 16:30 → EDIP 16:56 → 3N 22:00
PROVIDERS: ADMIT Family Medicine; ATTEND Internal Medicine
DX: J69.0 Pneumonitis due to inhalation of food and vomit (principal); G93.41 Metabolic encephalopathy; N17.0 Acute kidney failure with tubular necrosis; J44.0 Chronic obstructive pulmonary disease with (acute) lower respiratory infection; E87.4 Mixed disorder of acid-base balance; D68.59 Other primary thrombophilia; E46 Unspecified protein-calorie malnutrition; I48.20 Chronic atrial fibrillation, unspecified; J44.1 Chronic obstructive pulmonary disease with (acute) exacerbation; J15.9 Unspecified bacterial pneumonia; Z91.048 Other nonmedicinal substance allergy status; D64.9 Anemia, unspecified; Z68.24 Body mass index [BMI] 24.0-24.9, adult; E78.5 Hyperlipidemia, unspecified; E83.51 Hypocalcemia; E86.0 Dehydration; F03.90 Unspecified dementia, unspecified severity, without behavioral disturbance, psychotic disturbance, mood disturbance, and anxiety; H70.90 Unspecified mastoiditis, unspecified ear; I10 Essential (primary) hypertension; I25.10 Atherosclerotic heart disease of native coronary artery without angina pectoris; I25.2 Old myocardial infarction; J32.0 Chronic maxillary sinusitis; N40.0 Benign prostatic hyperplasia without lower urinary tract symptoms; Z79.899 Other long term (current) drug therapy; Z85.038 Personal history of other malignant neoplasm of large intestine; Z85.46 Personal history of malignant neoplasm of prostate; Z86.73 Personal history of transient ischemic attack (TIA), and cerebral infarction without residual deficits; Z87.891 Personal history of nicotine dependence; Z91.81 History of falling; Z92.3 Personal history of irradiation; Z95.1 Presence of aortocoronary bypass graft
CPT/HCPCS: 36415; 70450; 71045; 80048; 80053; 80162; 81003; 83605; 83690; 83735; 83880; 84100; 84484; 85025; 85610; 85730; 87040; 87324; 89055; 93005; 96365; 96366; G0378; J0295; J2543; J0360; J7120

== ENCOUNTER 2019-11-12 08:42 | Inpatient (IN) | payer MEDICARE ==
[~2019-11-12] VITALS: Ht 167.6 cm; Wt 65.0 kg
[~2019-11-12 08:42] MED LIST changes: +AMOX1TAB64 PO; +GUAI200T37 PO; +TAMS-11 PO
[2019-11-12] MEDS ORDERED: SODIUM CHLORIDE FLUSH 10ML SYR IVF ONE (09:00)
[2019-11-12] MEDS ORDERED: ACETAMINOPHEN 500 MG TABLET PO ONE (09:00)
--- NOTE | 2019-11-12 09:14 | NUR ---
REPORT RECEIVED FROM ADELITA OCHOA AT BEDSIDE, ALL MONITORS IN PLACE, LAB AT BEDSIDE. THIS RN ASSUMING CARE AT THIS TIME.
[2019-11-12] MEDS ORDERED: POLY17PO29 PO (09:21)
--- NOTE | 2019-11-12 09:21 | NUR ---
PT IN [facility]. BLOOD CULTURES AND LABS BEING DRAWN AT THIS TIME. EKG ALSO BEING DONE. PT A&oX2. PT ANSWERS APPROPRIATELY MOST TIMES, DOES FOLLOW COMMANDS. PT ON CARDIAC AND VITALS MONITORS.
[2019-11-12] MEDS ORDERED: ACETAMINOPHEN 500 MG TABLET ONE (09:27)
[2019-11-12 09:43] LABS: MEAN CORPUSCULAR HEMOGLOBIN 30.8 pg (27.5-34.5); MEAN CORPUSCULAR HGB CONC 33.1 g/dL (33.2-36.2); MEAN CORPUSCULAR VOLUME 93.1 fL (81-97); MEAN PLATELET VOLUME 8.1 fL (7.4-10.4); PLATELET COUNT 240 x10^3/uL (130-400); RED BLOOD COUNT 4.63 x10^6/uL (4.38-5.82); RED CELL DISTRIBUTION WIDTH 15.2 % (9.4-14.8)
[2019-11-12 09:45] LABS: INTERNATIONAL NORMALIZED RATIO 1.18 (0.93-1.1); PROTHROMBIN TIME 12.5 Seconds (9.6-11.5)
[2019-11-12 09:47] LABS: ALBUMIN 3.5 g/dL (3.4-5.0); ANION GAP 7 mmol/L (5-15); CALCIUM 8.1 mg/dL (8.5-10.1); CHLORIDE 106 mmol/L (98-107)
[2019-11-12 09:50] LABS: ALANINE AMINOTRANSFERASE 24 U/L (12-78); ALKALINE PHOSPHATASE 111 U/L (45-117); BILIRUBIN,TOTAL 1.7 mg/dL (0.2-1.0); CREATININE 1.01 mg/dL (0.7-1.3); TOTAL PROTEIN 6.7 g/dL (6.4-8.2)
[2019-11-12] MEDS ORDERED: VANCOMYCIN 1,300 MG in SODIUM CHLORIDE 0.9% 250 ML IV ONE (10:00)
[2019-11-12] MEDS ORDERED: PIPERACILLIN/TAZO/PMX 3.375GM 50 ML IVPB ONE (10:00)
[2019-11-12] MEDS ORDERED: VANCOMYCIN PER PHARMACY MC ONE (10:00)
[2019-11-12 10:18] LABS: RAPID INFLUENZA A Negative (Negative); RAPID INFLUENZA B Negative (Negative)
[2019-11-12 10:18] LABS: MICROSCOPIC NOT IND
[2019-11-12 10:21] LABS: BASOPHILS # (AUTO) 0.03 x10^3/uL (0-0.1); BASOPHILS % (AUTO) 0 % (0-1); EOSINOPHILS # (AUTO) 0.01 x10^3/uL (0-0.4); EOSINOPHILS % (AUTO) 0 % (1-7); LYMPHOCYTES # (AUTO) 1.15 x10^3/uL (1-3.4); LYMPHOCYTES % (AUTO) 7 % (22-44); MD SCAN; MONOCYTES # (AUTO) 1.39 x10^3/uL (0.2-0.8); MONOCYTES % (AUTO) 8 % (2-9); NEUTROPHILS # (AUTO) 15.19 x10^3/uL (1.8-6.8); NEUTROPHILS % (AUTO) 86 % (42-75)
[2019-11-12 10:24] LABS: CULTURE INDICATED? NO
--- NOTE | 2019-11-12 10:30 | NUR ---
FAMILY AT BEDSIDE, PT SLEEPING. RESPS EVEN AND UNLABORED. PT IS AFIB RATE 60-80'S ON WELDER EXPLOSION, OCC PACED BEAT, NO ECTOPY NOTED. PT AWAKENS TO VOICE, ORIENTED TO PERSON, PLACE AND SITUATION. IV ABX INITIATED AFTER BLOOD CX DRAWN X 2, PER MD LO PT HAS OCCULT PNA. PT AND FAMILY UPDATED WITH POC TO ADMIT TO MED SURG.
--- NOTE | 2019-11-12 11:15 | NUR ---
pt sleeping, resps even and unlabored. awakens to voice. a&o to person, place and situation. MD Pop at bedside for admit assessment.
[2019-11-12] MEDS ORDERED: BISACODYL 10 MG SUPP PR PRN (11:30)
[2019-11-12] MEDS ORDERED: POLYETHYLENE GLYCOL 17 GM PACKET PO PRN (11:30)
[2019-11-12] MEDS ORDERED: VANCOMYCIN PER PHARMACY MC PRN (11:30)
--- NOTE | 2019-11-12 11:41 | NUR ---
report called to ADELITA Kumari, pt in [place] at this time. pt to be transported to room 334 upon return.
--- NOTE | 2019-11-12 11:55 | NUR ---
report given to lana Oh.
[2019-11-12 12:35] VITALS: BP 124/56
[2019-11-12] MEDS ORDERED: PHARMACOKINETIC MONITORING MC PRN (13:00)
[2019-11-12] MEDS ORDERED: PIPERACILLIN/TAZO/PMX 3.375GM 50 ML IV SCH (13:00)
[2019-11-12] MEDS: CEFTRIAXONE PMX 2GM/50ML 50 ML IV SCH (14:34)
[2019-11-12] MEDS: SODIUM CHLORIDE 0.9% 1,000 ML IV SCH (14:34)
[2019-11-12 14:55] VITALS: BP 124/56
[2019-11-12] MEDS: ACYCLOVIR 650 MG in SODIUM CHLORIDE 0.9% 100 ML IV SCH ×2 (15:16→23:42)
[2019-11-12 19:15] VITALS: BP 179/81
[2019-11-12] MEDS: METOPROLOL TARTRATE 50 MG TABLET PO SCH (20:10)
[2019-11-12] MEDS: ATORVASTATIN 10 MG TABLET PO SCH (20:10)
[2019-11-12] MEDS: ASPIRIN 81 MG TABLET EC PO SCH (20:10)
[2019-11-13 00:52] VITALS: BP 170/81
[2019-11-13] MEDS: SODIUM CHLORIDE 0.9% 1,000 ML IV SCH (00:52)
[2019-11-13] MEDS: CEFTRIAXONE PMX 2GM/50ML 50 ML IV SCH ×2 (01:28→14:32)
[2019-11-13 05:34] LABS: BASOPHILS # (AUTO) 0.05 x10^3/uL (0-0.1); BASOPHILS % (AUTO) 1 % (0-1); EOSINOPHILS # (AUTO) 0.15 x10^3/uL (0-0.4); EOSINOPHILS % (AUTO) 2 % (1-7); LYMPHOCYTES # (AUTO) 1.32 x10^3/uL (1-3.4); LYMPHOCYTES % (AUTO) 14 % (22-44); MD NO; MEAN CORPUSCULAR HEMOGLOBIN 30.7 pg (27.5-34.5); MEAN CORPUSCULAR HGB CONC 32.9 g/dL (33.2-36.2); MEAN CORPUSCULAR VOLUME 93.4 fL (81-97); MEAN PLATELET VOLUME 8.4 fL (7.4-10.4); MONOCYTES # (AUTO) 1.09 x10^3/uL (0.2-0.8); MONOCYTES % (AUTO) 12 % (2-9); NEUTROPHILS # (AUTO) 6.88 x10^3/uL (1.8-6.8); NEUTROPHILS % (AUTO) 73 % (42-75); PLATELET COUNT 212 x10^3/uL (130-400); RED BLOOD COUNT 4.25 x10^6/uL (4.38-5.82); RED CELL DISTRIBUTION WIDTH 15.3 % (9.4-14.8)
[2019-11-13 05:37] LABS: ALBUMIN 2.9 g/dL (3.4-5.0); ANION GAP 8 mmol/L (5-15); CALCIUM 8.1 mg/dL (8.5-10.1); CHLORIDE 108 mmol/L (98-107)
[2019-11-13 05:49] LABS: ALANINE AMINOTRANSFERASE 19 U/L (12-78); ALKALINE PHOSPHATASE 79 U/L (45-117); BILIRUBIN,TOTAL 0.9 mg/dL (0.2-1.0); TOTAL PROTEIN 6.2 g/dL (6.4-8.2)
[2019-11-13 06:51] VITALS: BP 195/82
[2019-11-13] MEDS: ACYCLOVIR 650 MG in SODIUM CHLORIDE 0.9% 100 ML IV SCH ×3 (07:16→23:28)
[2019-11-13] MEDS: METOPROLOL TARTRATE 50 MG TABLET PO SCH ×2 (07:17→21:38)
[2019-11-13] MEDS: DIGOXIN 0.125 MG TABLET PO SCH (07:17)
[2019-11-13] MEDS: LISINOPRIL 20 MG TABLET PO SCH (07:17)
[2019-11-13] MEDS: TAMSULOSIN 0.4 MG CAP.ER.24H PO SCH (07:17)
[2019-11-13] MEDS ORDERED: RIVAROXABAN 20 MG TABLET PO SCH (08:00)
[2019-11-13 08:52] VITALS: BP 173/67
[2019-11-13] MEDS: VANCOMYCIN 1,300 MG in SODIUM CHLORIDE 0.9% 250 ML IV SCH (09:25)
[2019-11-13 13:11] VITALS: BP 171/74
[2019-11-13 20:08] VITALS: BP 188/74
[2019-11-13] MEDS ORDERED: MORPHINE SULFATE 4 MG/ML, 1ML IVPush ONE (20:30)
[2019-11-13 21:33] LABS: TROPONIN I 0.075 ng/mL (0.000-0.045)
[2019-11-13] MEDS: ATORVASTATIN 10 MG TABLET PO SCH (21:39)
[2019-11-13] MEDS: ASPIRIN 81 MG TABLET EC PO SCH (21:39)
[2019-11-14] VITALS (7 sets, daily range): BP systolic 138–192; BP diastolic 60–95
[2019-11-14] MEDS ORDERED: hydrALAzine 20 MG/ML, 1ML IVPush ONE (01:00)
[2019-11-14] MEDS: CEFTRIAXONE PMX 2GM/50ML 50 ML IV SCH ×2 (01:05→13:23)
[2019-11-14] MEDS: SODIUM CHLORIDE 0.9% 1,000 ML IV SCH (02:58)
[2019-11-14 04:16] LABS: BASOPHILS # (AUTO) 0.02 x10^3/uL (0-0.1); BASOPHILS % (AUTO) 0 % (0-1); EOSINOPHILS # (AUTO) 0.22 x10^3/uL (0-0.4); EOSINOPHILS % (AUTO) 2 % (1-7); LYMPHOCYTES # (AUTO) 0.87 x10^3/uL (1-3.4); LYMPHOCYTES % (AUTO) 7 % (22-44); MD NO; MEAN CORPUSCULAR HEMOGLOBIN 30.6 pg (27.5-34.5); MEAN CORPUSCULAR HGB CONC 33.1 g/dL (33.2-36.2); MEAN CORPUSCULAR VOLUME 92.7 fL (81-97); MEAN PLATELET VOLUME 8.1 fL (7.4-10.4); MONOCYTES # (AUTO) 0.77 x10^3/uL (0.2-0.8); MONOCYTES % (AUTO) 6 % (2-9); NEUTROPHILS # (AUTO) 10.46 x10^3/uL (1.8-6.8); NEUTROPHILS % (AUTO) 85 % (42-75); PLATELET COUNT 234 x10^3/uL (130-400); RED BLOOD COUNT 4.71 x10^6/uL (4.38-5.82); RED CELL DISTRIBUTION WIDTH 15.3 % (9.4-14.8)
[2019-11-14 04:22] LABS: ALANINE AMINOTRANSFERASE 18 U/L (12-78); ANION GAP 10 mmol/L (5-15); CALCIUM 7.9 mg/dL (8.5-10.1); CHLORIDE 107 mmol/L (98-107); CREATININE 0.79 mg/dL (0.7-1.3)
[2019-11-14 04:26] LABS: ALKALINE PHOSPHATASE 85 U/L (45-117); BILIRUBIN,TOTAL 0.6 mg/dL (0.2-1.0); TOTAL PROTEIN 6.4 g/dL (6.4-8.2); TROPONIN I 0.051 ng/mL (0.000-0.045)
[2019-11-14] MEDS: ACYCLOVIR 650 MG in SODIUM CHLORIDE 0.9% 100 ML IV SCH ×3 (07:57→23:31)
[2019-11-14] MEDS: TAMSULOSIN 0.4 MG CAP.ER.24H PO SCH (07:58)
[2019-11-14] MEDS: DIGOXIN 0.125 MG TABLET PO SCH (07:58)
[2019-11-14] MEDS: RIVAROXABAN 15 MG TABLET PO SCH (07:58)
[2019-11-14] MEDS: METOPROLOL TARTRATE 50 MG TABLET PO SCH ×2 (07:58→20:22)
[2019-11-14] MEDS: LISINOPRIL 20 MG TABLET PO SCH (07:58)
[2019-11-14] MEDS: MAALOX/HYOSCYAMINE/LIDOCAINE 45 ML BTL PO ONE ×2 (08:00→09:26)
[2019-11-14 09:51] LABS: TROPONIN I 0.063 ng/mL (0.000-0.045)
[2019-11-14] MEDS: VANCOMYCIN 1,300 MG in SODIUM CHLORIDE 0.9% 250 ML IV SCH (10:30)
[2019-11-14 16:18] LABS: TROPONIN I 0.072 ng/mL (0.000-0.045)
[2019-11-14] MEDS: ATORVASTATIN 10 MG TABLET PO SCH (20:22)
[2019-11-14] MEDS: ASPIRIN 81 MG TABLET EC PO SCH (20:22)
[2019-11-15 01:30] VITALS: BP 144/76
[2019-11-15] MEDS: CEFTRIAXONE PMX 2GM/50ML 50 ML IV SCH (01:37)
[2019-11-15 03:14] VITALS: BP 146/70
[2019-11-15 05:14] LABS: BASOPHILS # (AUTO) 0.06 x10^3/uL (0-0.1); BASOPHILS % (AUTO) 1 % (0-1); EOSINOPHILS % (AUTO) 5 % (1-7); LYMPHOCYTES # (AUTO) 1.39 x10^3/uL (1-3.4); LYMPHOCYTES % (AUTO) 16 % (22-44); MD NO; MEAN CORPUSCULAR HEMOGLOBIN 30.7 pg (27.5-34.5); MEAN CORPUSCULAR HGB CONC 32.9 g/dL (33.2-36.2); MEAN CORPUSCULAR VOLUME 93.2 fL (81-97); MEAN PLATELET VOLUME 8.3 fL (7.4-10.4); MONOCYTES # (AUTO) 0.72 x10^3/uL (0.2-0.8); MONOCYTES % (AUTO) 9 % (2-9); NEUTROPHILS # (AUTO) 5.87 x10^3/uL (1.8-6.8); NEUTROPHILS % (AUTO) 70 % (42-75); PLATELET COUNT 260 x10^3/uL (130-400); RED BLOOD COUNT 4.08 x10^6/uL (4.38-5.82); RED CELL DISTRIBUTION WIDTH 15.1 % (9.4-14.8)
[2019-11-15 05:16] LABS: ALBUMIN 2.8 g/dL (3.4-5.0); ANION GAP 9 mmol/L (5-15); CALCIUM 8.1 mg/dL (8.5-10.1); CHLORIDE 109 mmol/L (98-107)
[2019-11-15 05:20] LABS: ALANINE AMINOTRANSFERASE 17 U/L (12-78); ALKALINE PHOSPHATASE 73 U/L (45-117); BILIRUBIN,TOTAL 0.6 mg/dL (0.2-1.0); CREATININE 0.81 mg/dL (0.7-1.3); TOTAL PROTEIN 5.7 g/dL (6.4-8.2)
[2019-11-15 07:06] VITALS: BP 172/71
[2019-11-15] MEDS: ACYCLOVIR 650 MG in SODIUM CHLORIDE 0.9% 100 ML IV SCH (08:33)
[2019-11-15] MEDS: PANTOPRAZOLE 20MG TABLET PO SCH ×2 (08:35→16:17)
[2019-11-15] MEDS: METOPROLOL TARTRATE 50 MG TABLET PO SCH ×2 (08:35→20:30)
[2019-11-15] MEDS: LISINOPRIL 20 MG TABLET PO SCH (08:36)
[2019-11-15] MEDS: DIGOXIN 0.125 MG TABLET PO SCH (08:36)
[2019-11-15] MEDS: TAMSULOSIN 0.4 MG CAP.ER.24H PO SCH (08:36)
[2019-11-15] MEDS: RIVAROXABAN 15 MG TABLET PO SCH (08:36)
[2019-11-15] MEDS ORDERED: REGADENOSON 0.4 MG/5 ML SYRINGE ONE (08:37)
[2019-11-15] MEDS: DOXYCYCLINE 100MG TABLET PO SCH ×2 (09:00→20:30)
[2019-11-15] MEDS: CEFDINIR 300 MG CAPSULE PO SCH ×2 (09:58→20:30)
[2019-11-15 13:50] VITALS: BP 124/73
[2019-11-15 14:45] VITALS: BP 134/77
[2019-11-15 20:11] VITALS: BP 141/68
[2019-11-15] MEDS: ASPIRIN 81 MG TABLET EC PO SCH (20:31)
[2019-11-15] MEDS: ATORVASTATIN 10 MG TABLET PO SCH (20:31)
[2019-11-16 01:32] VITALS: BP 138/74
[2019-11-16] MEDS: PANTOPRAZOLE 20MG TABLET PO SCH (06:06)
[2019-11-16] MEDS: RIVAROXABAN 15 MG TABLET PO SCH (08:33)
[2019-11-16] MEDS: DIGOXIN 0.125 MG TABLET PO SCH (08:33)
[2019-11-16] MEDS: CEFDINIR 300 MG CAPSULE PO SCH (08:33)
[2019-11-16] MEDS: TAMSULOSIN 0.4 MG CAP.ER.24H PO SCH (08:33)
[2019-11-16] MEDS: DOXYCYCLINE 100MG TABLET PO SCH (08:33)
[2019-11-16] MEDS: LISINOPRIL 20 MG TABLET PO SCH (08:34)
[2019-11-16] MEDS: METOPROLOL TARTRATE 50 MG TABLET PO SCH (08:34)
[2019-11-16 08:35] VITALS: BP 189/100
[2019-11-16 11:26] LABS: BASOPHILS % (AUTO) 1 % (0-1); EOSINOPHILS # (AUTO) 0.35 x10^3/uL (0-0.4); EOSINOPHILS % (AUTO) 4 % (1-7); LYMPHOCYTES # (AUTO) 1.53 x10^3/uL (1-3.4); LYMPHOCYTES % (AUTO) 17 % (22-44); MD NO; MEAN CORPUSCULAR HEMOGLOBIN 30.6 pg (27.5-34.5); MEAN CORPUSCULAR HGB CONC 32.6 g/dL (33.2-36.2); MEAN CORPUSCULAR VOLUME 93.7 fL (81-97); MEAN PLATELET VOLUME 7.3 fL (7.4-10.4); MONOCYTES # (AUTO) 0.74 x10^3/uL (0.2-0.8); MONOCYTES % (AUTO) 8 % (2-9); NEUTROPHILS # (AUTO) 6.09 x10^3/uL (1.8-6.8); NEUTROPHILS % (AUTO) 69 % (42-75); PLATELET COUNT 312 x10^3/uL (130-400); RED BLOOD COUNT 4.32 x10^6/uL (4.38-5.82); RED CELL DISTRIBUTION WIDTH 15.7 % (9.4-14.8)
== END 2019-11-16 15:20 | disposition home or self-care (01) | DRG 871 ==
LOC: ED 09:54 → EDIP 10:53 → 3N 12:31 → 5SO 11-14 10:07 → DCLOUNGE 11-16 15:15
PROVIDERS: ADMIT Internal Medicine; ATTEND Internal Medicine
PROC: 0T9B70Z Drainage of Bladder with Drainage Device, Via Natural or Artificial Opening (ICD-10-PCS; principal; 2019-11-12)
DX: A41.9 Sepsis, unspecified organism (principal); G93.41 Metabolic encephalopathy; D68.69 Other thrombophilia; Z91.048 Other nonmedicinal substance allergy status; E78.5 Hyperlipidemia, unspecified; F03.90 Unspecified dementia, unspecified severity, without behavioral disturbance, psychotic disturbance, mood disturbance, and anxiety; I11.9 Hypertensive heart disease without heart failure; I48.91 Unspecified atrial fibrillation; N28.1 Cyst of kidney, acquired; W18.39XA Other fall on same level, initial encounter; Y93.89 Activity, other specified; Y92.89 Other specified places as the place of occurrence of the external cause; Y99.8 Other external cause status; Z85.038 Personal history of other malignant neoplasm of large intestine; Z85.46 Personal history of malignant neoplasm of prostate; Z86.73 Personal history of transient ischemic attack (TIA), and cerebral infarction without residual deficits; Z87.891 Personal history of nicotine dependence; Z91.81 History of falling; Z95.0 Presence of cardiac pacemaker; E53.8 Deficiency of other specified B group vitamins
CPT/HCPCS: 36415; 70450; 71045; 71250; 76700; 78452; 80053; 80162; 81003; 82607; 83605; 84145; 84439; 84443; 84484; 85025; 85610; 85730; 87040; 87400; 93005; 93017; 93306; 99285; G0378; J0133; J0696; J2785; J3370; A9502; C9898; J0360; J2270; J7030; J7050

== ENCOUNTER 2020-11-16 09:43 | Inpatient (IN) | payer MEDICARE ==
[~2020-11-16] VITALS: Ht 167.6 cm; Wt 61.5 kg
[~2020-11-16 09:43] MED LIST changes: -ASPI-515 PO; +ASPI-963 PO; -DIGO125T PO; +DIGO125T85 PO; -LISI1TAB19 PO; +LISI1TAB39 PO; -OXYC-302 PO; +OXYC1TAB14 PO; +POLY17PO29 PO
--- NOTE | 2020-11-16 10:08 | NUR ---
MD AT BEDSIDE FOR ASSESSMENT AND TO DISCUSSED PLAN OF CARE
--- NOTE | 2020-11-16 10:09 | NUR ---
BIB EMS FROM [facility]. PT "FOUND DOWN IN HIS APARTMENT, NOT ACTING LIKE HE NORMALLY DOES" STAFF STATES HE HAD AMS AND WAS AGITATED WHICH IS "UNLIKE HIM". PER EMS, STAFF CALLED SON WHO STATES THE LAST TIME HIS FATHER WAS LIKE THIS HE WAS HAVING A STROKE. LAST KNOWN WELL TIME WAS LAST NIGHT. ON ARRIVAL PT AOX3. PT STATES HE DID NOT FALL. PT STATES "I SLID OFF MY BED TO THE FLOOR" C/O LEFT CHEST PAIN 11/09. HX OF AFIB, DEMENTIA, HTN, STOKE, HIGH CHOLESTEROL, PACEMAKER. EKG COMPLETE. MONITORS CONNECTED. WARM BLANKETS PROVIDED. CALL LIGHT W/IN REACH.
--- NOTE | 2020-11-16 10:17 | NUR ---
PT ASSISTED TO SIDE OF BED FOR URINE COLLECTION. PT UNABLE TO URINATE AT THIS TIME.
[2020-11-16 10:56] LABS: BASOPHILS % (AUTO) 1 % (0-1); EOSINOPHILS % (AUTO) 0 % (1-7); LYMPHOCYTES % (AUTO) 12 % (22-44); MEAN CORPUSCULAR HGB CONC 34.1 g/dL (33.2-36.2); MEAN PLATELET VOLUME 8.4 fL (7.4-10.4); MONOCYTES % (AUTO) 13 % (2-9); NEUTROPHILS % (AUTO) 74 % (42-75); PLATELET COUNT 204 x10^3/uL (130-400); RED CELL DISTRIBUTION WIDTH 14.4 % (9.4-14.8)
[2020-11-16 10:57] LABS: MD NO
[2020-11-16 11:04] LABS: ALANINE AMINOTRANSFERASE 29 U/L (12-78); ALBUMIN 3.9 g/dL (3.4-5.0); ANION GAP 9 mmol/L (5-15); CALCIUM 8.7 mg/dL (8.5-10.1); CHLORIDE 105 mmol/L (98-107); CREATININE 1.12 mg/dL (0.7-1.3)
[2020-11-16] MEDS ORDERED: OMNIPAQUE 350 MG/ML, 75ML BOTTLE ONE ×2 (11:04→12:51)
--- NOTE | 2020-11-16 11:04 | NUR ---
URINE COLLECTED AND SENT. CT COMPLETE. PT RESTING ON GURNEY TOLERATING PROCEDURE WELL. NO C/O PAIN AT THIS TIME. VSS. NAD. CALL LIGHT W/IN REACH.
[2020-11-16 11:08] LABS: ALKALINE PHOSPHATASE 110 U/L (45-117); BILIRUBIN,TOTAL 1.3 mg/dL (0.2-1.0); TOTAL PROTEIN 7.4 g/dL (6.4-8.2); TROPONIN I 0.069 ng/mL (0.000-0.045)
[2020-11-16 11:25] LABS: MICROSCOPIC AUTO
--- NOTE | 2020-11-16 11:43 | NUR ---
PT SLEEPING ON GURFAIRCHILD. VSS. NAD. WILL CONTINUE TO MONITOR
[2020-11-16] MEDS ORDERED: SODIUM CHLORIDE 0.9%, 500ML IVBOLUS ONE (12:30)
--- NOTE | 2020-11-16 13:28 | NUR ---
PT RESTING ON GURNEY. IV BOLUS INFUSING PER ORDERS. NO C/O PAIN AT THIS TIME. VSS. NAD. CALL LIGHT W/IN REACH. WILL CONTINUE TO MONITOR
[2020-11-16] MEDS ORDERED: PIPERACILLIN/TAZO/PMX 3.375GM 50 ML IVPB ONE (13:30)
[2020-11-16] MEDS ORDERED: VANCOMYCIN PER PHARMACY MC ONE (13:30)
[2020-11-16] MEDS ORDERED: VANCOMYCIN 1,600 MG in SODIUM CHLORIDE 0.9% 250 ML IV ONE (13:30)
[2020-11-16] MEDS: AMPICILLIN/SULBACTAM 3 GM in SODIUM CHLORIDE 0.9% 100 ML IV SCH ×2 (14:30→21:28)
[2020-11-16] MEDS ORDERED: GUAIFENESIN/DM 200-20MG, 10ML UDC PO PRN (14:30)
[2020-11-16] MEDS ORDERED: ONDANSETRON 2MG/ML, 2ML IVPush PRN (14:30)
[2020-11-16] MEDS ORDERED: DOCUSATE 100 MG CAPSULE PO PRN (14:30)
[2020-11-16] MEDS ORDERED: ACETAMINOPHEN 325 MG TABLET PO PRN (14:30)
[2020-11-16] MEDS ORDERED: D5%-0.9% NACL 1,000 ML IV SCH (14:30)
[2020-11-16] MEDS ORDERED: hydrALAzine 20 MG/ML, 1ML IVPush PRN (14:30)
--- NOTE | 2020-11-16 14:58 | NUR ---
REPORT FROM AMY. AUNG BERG.
[2020-11-16 15:08] LABS: TROPONIN I 0.088 ng/mL (0.000-0.045)
[2020-11-16 15:11] LABS: INTERNATIONAL NORMALIZED RATIO 1.08 (0.93-1.1); PROTHROMBIN TIME 11.4 Seconds (9.6-11.5)
--- NOTE | 2020-11-16 18:33 | NUR ---
PT RESTING ON GURNEY. STATES NO PAIN AT THIS TIME. VSS. NAD. CALL LIGHT W/IN REACH. WILL CONTINUE TO MONITOR
--- NOTE | 2020-11-16 18:34 | NUR ---
LEFT MESSAGE WITH BIENVENIDO AT [facility] PER HER PREVIOUS REQUEST TO UPDATE ON ADMIT TO [facility]
--- NOTE | 2020-11-16 19:35 | NUR ---
PT RESTING ON GURNEY. BEDPAN REMOVED. PT ABLE TO HAVE SMALL, BROWN, FORMED BM. OCCASIONAL URINARY INCONTINENCE. PT REPOSITIONED IN BED. STATES NO PAIN AT THIS TIME. VSS. NAD. CALL LIGHT W/IN REACH. WILL CONTINUE TO MONITOR
[2020-11-16 20:47] LABS: TROPONIN I 0.084 ng/mL (0.000-0.045)
[2020-11-16] MEDS: METOPROLOL TARTRATE 100 MG TAB PO SCH (21:00)
[2020-11-16] MEDS: ATORVASTATIN 10 MG TABLET PO SCH (21:00)
[2020-11-16] MEDS ORDERED: METOPROLOL TARTRATE 25 MG TAB ONE (21:21)
[2020-11-16] MEDS ORDERED: ATORVASTATIN 20 MG TABLET ONE ×2 (21:21→21:23)
[2020-11-16] MEDS ORDERED: METOPROLOL TARTRATE 50 MG TAB ONE (21:23)
--- NOTE | 2020-11-16 21:57 | NUR ---
REPORT FROM [facility] TRANSFER OF CARE AT THIS TIME
--- NOTE | 2020-11-16 22:01 | NUR ---
CARLIN [place] PHONE NUMBER [phone]
--- NOTE | 2020-11-16 22:56 | NUR ---
PT INCONTINENT OF URINE, LINENS CHANGED PT REPOSITIONED TO COMFORT. CONDOM CATH APPLIED WITHOUT DIFFICULTY.
--- NOTE | 2020-11-17 00:08 | NUR ---
REPORT RECIEVED FROM ADELITA HOOPER
--- NOTE | 2020-11-17 00:12 | NUR ---
PATIENT RESTING IN BED, EVEN-UNLABORED RESPIRATIONS NOTED. NO NOTED NEEDS AT THIS TIME. VITAL SIGNS STABLE. WILL CONTINUE TO MONITOR.
--- NOTE | 2020-11-17 01:55 | NUR ---
PATIENT RESTING IN BED, EVEN-UNLABORED RESPIRATIONS NOTED. WILL CONTINUE TO MONITOR.
--- NOTE | 2020-11-17 03:04 | NUR ---
AIDED PATIENT WITH REPOSITIONING, DIMMED LIGHTS FOR PATIENT. PATIENT DENIES ANY ADDITIONAL NEEDS AT THIS TIME. WILL CONTINUE TO MONITOR.
[2020-11-17] MEDS: AMPICILLIN/SULBACTAM 3 GM in SODIUM CHLORIDE 0.9% 100 ML IV SCH (03:30)
--- NOTE | 2020-11-17 04:20 | NUR ---
PATIENT RESTING IN BED, NO NOTED NEEDS AT THIS TIME. VITAL SIGNS STABLE. WILL CONTINUE TO MONITOR.
[2020-11-17 05:00] LABS: BASOPHILS % (AUTO) 1 % (0-1); EOSINOPHILS % (AUTO) 0 % (1-7); LYMPHOCYTES % (AUTO) 12 % (22-44); MEAN CORPUSCULAR HEMOGLOBIN 32.4 pg (27.5-34.5); MEAN CORPUSCULAR HGB CONC 35.1 g/dL (33.2-36.2); MEAN PLATELET VOLUME 8.4 fL (7.4-10.4); MONOCYTES % (AUTO) 12 % (2-9); NEUTROPHILS % (AUTO) 75 % (42-75); PLATELET COUNT 179 x10^3/uL (130-400)
[2020-11-17 05:05] LABS: MD NO
[2020-11-17 05:10] LABS: CHLORIDE 104 mmol/L (98-107)
[2020-11-17 05:15] LABS: ANION GAP 8 mmol/L (5-15); CALCIUM 8.5 mg/dL (8.5-10.1)
--- NOTE | 2020-11-17 05:58 | NUR ---
PATIENT IN ROOM. VITAL SIGNS STABLE. NO NOTED ADDITIONAL NEEDS AT THIS TIME. WILL CONTINUE TO MONITOR.
[2020-11-17] MEDS ORDERED: RIVAROXABAN 20 MG TABLET PO SCH (06:00)
[2020-11-17] MEDS ORDERED: RIVAROXABAN 20 MG TABLET ONE (06:18)
--- NOTE | 2020-11-17 06:28 | NUR ---
PATIENT UPDATED ON PLAN OF CARE. NO NOTED NEEDS AT THIS TIME. WILL CONTINUE TO MONITOR. PATIENT DENIES ANY ADDITIONAL NEEDS. ABLE TO SWALLOW MEDICATIONS WITHOUT COMPLICATIONS.
--- NOTE | 2020-11-17 06:51 | NUR ---
REPORT GIVEN ADELITA SERRATO
--- NOTE | 2020-11-17 06:57 | NUR ---
Report from Lisa UREÑA. Pt resting in hospital bed with eyes closed, resp even and unlabored,
--- NOTE | 2020-11-17 08:56 | NUR ---
Pt continues resting in bed, NADN.
--- NOTE | 2020-11-17 09:21 | NUR ---
Report to Samia UREÑA
[2020-11-17] MEDS ORDERED: TAMSULOSIN 0.4 MG CAP.ER.24H ONE (10:17)
[2020-11-17] MEDS ORDERED: THIAMINE 100MG TABLET ONE (10:17)
[2020-11-17] MEDS ORDERED: LISINOPRIL 20 MG TABLET ONE (10:17)
[2020-11-17] MEDS ORDERED: METOPROLOL TARTRATE 50 MG TAB ONE (10:18)
[2020-11-17] MEDS ORDERED: CHOLECALCIFEROL 1,000 UNIT TABLET ONE (10:18)
[2020-11-17] MEDS ORDERED: ASCORBIC ACID 500 MG TABLET ONE ×2 (10:18→16:47)
[2020-11-17] MEDS ORDERED: ZINC SULFATE 220 MG CAPSULE ONE (10:18)
[2020-11-17] MEDS: ASCORBIC ACID 500 MG TABLET PO SCH ×2 (10:31→17:10)
[2020-11-17] MEDS: TAMSULOSIN 0.4 MG CAP.ER.24H PO SCH (10:31)
[2020-11-17] MEDS: METOPROLOL TARTRATE 100 MG TAB PO SCH (10:32)
[2020-11-17] MEDS: ZINC SULFATE 220 MG CAPSULE PO SCH (10:33)
[2020-11-17] MEDS: LISINOPRIL 20 MG TABLET PO SCH (10:33)
[2020-11-17] MEDS: THIAMINE 100MG TABLET PO SCH (10:33)
--- NOTE | 2020-11-17 10:43 | NUR ---
TASK RN: 0900 MEDS GIVEN NOTED. DIGOXIN AND VIT D3 REQUESTED FROM PHARMACY. PT TOLLERATED WELL BUT NEEDS TO TAKE EACH PILL ONE AT A TIME AND NEEDS A STRAW TO DRINK WITH.
--- NOTE | 2020-11-17 10:45 | NUR ---
CALL FROM NELI AT [facility] ([facility]); ASKING ABOUT PT STATUS. INFORMED NELI THAT PT IS BEING ADMITTED. NELI ASKED IF PT HAD COVID TEST; INFORMED HER RESULT IS PENDING.
--- NOTE | 2020-11-17 10:53 | NUR ---
PT CARE ASSUMED. PT RESTING QUIETLY ON HOSPITAL BED.
[2020-11-17] MEDS ORDERED: CEFTRIAXONE PMX 1GM/50ML 50 ML ONE (11:06)
[2020-11-17] MEDS ORDERED: CHOLECALCIFEROL 5,000u TAB ONE (11:10)
--- NOTE | 2020-11-17 11:10 | NUR ---
EMAR REVIEWED: DIGOXIN AND VIT D3 NOT YET GIVEN. PER ADELITA BOOTH, DIGOXIN WAS ORDERED FROM PHARMACY APPROXIMATELY 30 MINS AGO.
[2020-11-17] MEDS: CEFTRIAXONE PMX 1GM/50ML 50 ML IV SCH (11:38)
[2020-11-17] MEDS: DIGOXIN 0.125 MG TABLET PO SCH (11:39)
[2020-11-17] MEDS: CHOLECALCIFEROL 5,000u TAB PO SCH (11:40)
--- NOTE | 2020-11-17 11:42 | NUR ---
DIGOXIN AND VIT D3 GIVEN PER EMAR. ROCEPHISamuel MORRISON; INFUSING AT 100ML/HR VIA PUMP; IV SITE PATENT
--- NOTE | 2020-11-17 11:55 | NUR ---
PT VOICED URGE TO HAVE BM. COMMODE CHAIR BROUGHT TO ROOM. PT UNABLE TO ASSIST HIMSELF & RN COMMODE CHAIR. BED BOUDREAUX PROVIDED.
--- NOTE | 2020-11-17 12:15 | NUR ---
PT CLEANSED OF SOFT BROWN STOOL
--- NOTE | 2020-11-17 12:45 | NUR ---
PUMP ALARMING; ROCEPHIN INFUSION RESTARTED; IV SITE PATENT. PT REPOSITIONED TO LT LATERAL. SIDE RAILS UP X3. CALL LIGHT W/IN REACH
[2020-11-17] MEDS: AZITHROMYCIN 500 MG in SODIUM CHLORIDE 0.9% 250 ML IV SCH (13:01)
--- NOTE | 2020-11-17 13:02 | NUR ---
ROCEPHIN INFUSED. ZITHROMAX HUNG; INFUSING AT 250ML/HR VIA PUMP; IV SITE PATENT. PT DOZING IN LT LATERAL POSITION.
--- NOTE | 2020-11-17 14:08 | NUR ---
PT ASLEEP IN LT LATERAL POSITION; RESP EVEN & UNLABORED. ZITHROMAX INFUSING
[2020-11-17] MEDS ORDERED: D5%-0.9% NACL 1,000 ML IV SCH (14:30)
--- NOTE | 2020-11-17 14:30 | NUR ---
PT ASLEEP IN LT LATERAL POSITION. RESP EVEN & UNLABORED. ZITHROMAX INFUSED; IV SITE PATENT.
--- NOTE | 2020-11-17 14:38 | NUR ---
CONDOM CATH COLLECTION BAG EMPTIED OF 400ML CLEAR RENAE URINE
--- NOTE | 2020-11-17 14:52 | NUR ---
CALLED DR CARRILLO RE: MISSED UNASYN DOSE (SCHEDULED FOR 1000). PER DOCTOR, "THAT'S OK BECAUSE I SWITCHED HIS ANTIBIOTICS". MISSED UNASYN WILL NOT BE HUNG.
--- NOTE | 2020-11-17 17:16 | NUR ---
VITAMIN C GIVEN PER EMAR. PT SLOW TO SWALLOW TABLETS.
--- NOTE | 2020-11-17 17:20 | NUR ---
IV SITE FLUSHED W/ SALINE; PATENT
--- NOTE | 2020-11-17 17:25 | NUR ---
CONDOM CATHETER REPLACED. INSTRUCTED PT TO LEAVE CONDOM ON; UNDERSTANDING VERBALIZED.
--- NOTE | 2020-11-17 17:26 | NUR ---
SIDE RAILS UP X3, CALL LIGHT W/IN REACH.
--- NOTE | 2020-11-17 18:08 | NUR ---
PT ENDORSED TO DON SERRATO RN.
--- NOTE | 2020-11-17 20:34 | NUR ---
PT REPORT TO ADELITA BALES FOR ROOM 482.
[2020-11-17 21:06] VITALS: BP 132/71
[2020-11-17] MEDS: ATORVASTATIN 10 MG TABLET PO SCH (21:18)
[2020-11-17] MEDS: MELATONIN 5 MG TABLET PO PRN (21:18)
[2020-11-18 00:40] VITALS: BP 157/68
[2020-11-18 06:52] VITALS: BP 135/89
[2020-11-18 07:32] LABS: TROPONIN I 0.074 ng/mL (0.000-0.045)
[2020-11-18] MEDS: DIGOXIN 0.125 MG TABLET PO SCH (08:32)
[2020-11-18] MEDS: LISINOPRIL 20 MG TABLET PO SCH (08:32)
[2020-11-18] MEDS: THIAMINE 100MG TABLET PO SCH (08:32)
[2020-11-18] MEDS: ZINC SULFATE 220 MG CAPSULE PO SCH (08:32)
[2020-11-18] MEDS: METOPROLOL TARTRATE 50 MG TAB PO SCH ×2 (08:32→20:55)
[2020-11-18] MEDS: RIVAROXABAN 20 MG TABLET PO SCH (08:33)
[2020-11-18] MEDS: ASCORBIC ACID 500 MG TABLET PO SCH ×2 (08:33→17:08)
[2020-11-18] MEDS: TAMSULOSIN 0.4 MG CAP.ER.24H PO SCH (08:33)
[2020-11-18] MEDS: CHOLECALCIFEROL 5,000u TAB PO SCH (08:33)
[2020-11-18] MEDS: DEXAMETHASONE 4 MG/ML, 1ML IVPush SCH (10:18)
[2020-11-18] MEDS: CEFTRIAXONE PMX 1GM/50ML 50 ML IV SCH (11:13)
[2020-11-18] MEDS: AZITHROMYCIN 500 MG in SODIUM CHLORIDE 0.9% 250 ML IV SCH (12:56)
[2020-11-18 13:37] VITALS: BP 133/71
[2020-11-18 19:03] VITALS: BP 112/64
[2020-11-18] MEDS: ATORVASTATIN 10 MG TABLET PO SCH (20:55)
[2020-11-18] MEDS: MELATONIN 5 MG TABLET PO PRN (20:55)
[2020-11-19 00:45] VITALS: BP 119/64
[2020-11-19 07:04] VITALS: BP 119/62
[2020-11-19] MEDS: THIAMINE 100MG TABLET PO SCH (08:15)
[2020-11-19] MEDS: ASCORBIC ACID 500 MG TABLET PO SCH ×2 (08:15→17:11)
[2020-11-19] MEDS: RIVAROXABAN 20 MG TABLET PO SCH (08:15)
[2020-11-19] MEDS: DIGOXIN 0.125 MG TABLET PO SCH (08:15)
[2020-11-19] MEDS: DEXAMETHASONE 4 MG/ML, 1ML IVPush SCH (08:15)
[2020-11-19] MEDS: TAMSULOSIN 0.4 MG CAP.ER.24H PO SCH (08:15)
[2020-11-19] MEDS: METOPROLOL TARTRATE 50 MG TAB PO SCH ×2 (08:15→20:17)
[2020-11-19] MEDS: ZINC SULFATE 220 MG CAPSULE PO SCH (08:15)
[2020-11-19] MEDS: LISINOPRIL 20 MG TABLET PO SCH (08:15)
[2020-11-19] MEDS: CHOLECALCIFEROL 5,000u TAB PO SCH (08:15)
[2020-11-19 09:54] LABS: C-REACTIVE PROTEIN, QUANT 2.2 mg/dL (0.02-0.49)
[2020-11-19] MEDS: CEFTRIAXONE PMX 1GM/50ML 50 ML IV SCH (12:08)
[2020-11-19] MEDS: AZITHROMYCIN 500 MG in SODIUM CHLORIDE 0.9% 250 ML IV SCH (12:47)
[2020-11-19 19:45] VITALS: BP 132/60
[2020-11-19] MEDS: ATORVASTATIN 10 MG TABLET PO SCH (20:17)
[2020-11-20 01:11] VITALS: BP 121/62
[2020-11-20 08:25] VITALS: BP 120/54
[2020-11-20] MEDS: DEXAMETHASONE 4 MG/ML, 1ML IVPush SCH (09:14)
[2020-11-20] MEDS: TAMSULOSIN 0.4 MG CAP.ER.24H PO SCH (09:16)
[2020-11-20] MEDS: ASCORBIC ACID 500 MG TABLET PO SCH ×2 (09:16→17:03)
[2020-11-20] MEDS: METOPROLOL TARTRATE 50 MG TAB PO SCH ×2 (09:16→19:40)
[2020-11-20] MEDS: CHOLECALCIFEROL 5,000u TAB PO SCH (09:16)
[2020-11-20] MEDS: DIGOXIN 0.125 MG TABLET PO SCH (09:16)
[2020-11-20] MEDS: THIAMINE 100MG TABLET PO SCH (09:16)
[2020-11-20] MEDS: ZINC SULFATE 220 MG CAPSULE PO SCH (09:16)
[2020-11-20] MEDS: LISINOPRIL 20 MG TABLET PO SCH (09:16)
[2020-11-20] MEDS: RIVAROXABAN 20 MG TABLET PO SCH (09:16)
[2020-11-20] MEDS: CEFTRIAXONE PMX 1GM/50ML 50 ML IV SCH (11:16)
[2020-11-20] MEDS: AZITHROMYCIN 500 MG in SODIUM CHLORIDE 0.9% 250 ML IV SCH (12:26)
[2020-11-20 13:30] VITALS: BP 136/25
[2020-11-20 18:59] VITALS: BP 144/72
[2020-11-20] MEDS: ATORVASTATIN 10 MG TABLET PO SCH (19:40)
[2020-11-20] MEDS: MELATONIN 5 MG TABLET PO PRN (19:41)
[2020-11-21 01:37] VITALS: BP 132/63
[2020-11-21 06:58] VITALS: BP 134/60
[2020-11-21] MEDS: DEXAMETHASONE 4 MG/ML, 1ML IVPush SCH (10:04)
[2020-11-21] MEDS: CEFTRIAXONE PMX 1GM/50ML 50 ML IV SCH (11:39)
[2020-11-21] MEDS: RIVAROXABAN 20 MG TABLET PO SCH (12:34)
[2020-11-21] MEDS: ASCORBIC ACID 500 MG TABLET PO SCH ×2 (12:34→17:25)
[2020-11-21] MEDS: AZITHROMYCIN 500 MG in SODIUM CHLORIDE 0.9% 250 ML IV SCH (12:34)
[2020-11-21] MEDS: TAMSULOSIN 0.4 MG CAP.ER.24H PO SCH (12:35)
[2020-11-21] MEDS: THIAMINE 100MG TABLET PO SCH (12:35)
[2020-11-21] MEDS: LISINOPRIL 20 MG TABLET PO SCH (12:35)
[2020-11-21] MEDS: DIGOXIN 0.125 MG TABLET PO SCH (12:35)
[2020-11-21] MEDS: CHOLECALCIFEROL 5,000u TAB PO SCH (12:35)
[2020-11-21] MEDS: METOPROLOL TARTRATE 50 MG TAB PO SCH ×2 (12:35→21:38)
[2020-11-21] MEDS: ZINC SULFATE 220 MG CAPSULE PO SCH (12:36)
[2020-11-21 13:55] LABS: ANION GAP 10 mmol/L (5-15); CALCIUM 7.9 mg/dL (8.5-10.1); CHLORIDE 104 mmol/L (98-107)
[2020-11-21 14:32] VITALS: BP 137/79
[2020-11-21] MEDS: ATORVASTATIN 10 MG TABLET PO SCH (21:00)
[2020-11-21 21:32] VITALS: BP 146/66
[2020-11-22 01:38] VITALS: BP 130/79
[2020-11-22] MEDS: DEXAMETHASONE 4 MG/ML, 1ML IVPush SCH (08:08)
[2020-11-22] MEDS: DIGOXIN 0.125 MG TABLET PO SCH (08:08)
[2020-11-22 08:18] VITALS: BP 175/85
[2020-11-22 09:07] LABS: MEAN CORPUSCULAR HEMOGLOBIN 31.4 pg (27.5-34.5); MEAN CORPUSCULAR HGB CONC 34.3 g/dL (33.2-36.2); MEAN PLATELET VOLUME 8.5 fL (7.4-10.4); PLATELET COUNT 198 x10^3/uL (130-400); RED BLOOD COUNT 5.33 x10^6/uL (4.38-5.82)
[2020-11-22 09:20] LABS: ALANINE AMINOTRANSFERASE 64 U/L (12-78); ALBUMIN 3.1 g/dL (3.4-5.0); ANION GAP 9 mmol/L (5-15); CALCIUM 8.4 mg/dL (8.5-10.1); CHLORIDE 105 mmol/L (98-107); CREATININE 0.89 mg/dL (0.7-1.3)
[2020-11-22 09:23] LABS: ALKALINE PHOSPHATASE 85 U/L (45-117); BILIRUBIN,TOTAL 2.3 mg/dL (0.2-1.0); TOTAL PROTEIN 6.9 g/dL (6.4-8.2)
[2020-11-22 09:32] LABS: MD YES
[2020-11-22] MEDS: CHOLECALCIFEROL 5,000u TAB PO SCH (09:33)
[2020-11-22] MEDS: TAMSULOSIN 0.4 MG CAP.ER.24H PO SCH (09:33)
[2020-11-22] MEDS: RIVAROXABAN 20 MG TABLET PO SCH (09:33)
[2020-11-22] MEDS: THIAMINE 100MG TABLET PO SCH (09:33)
[2020-11-22] MEDS: ASCORBIC ACID 500 MG TABLET PO SCH ×2 (09:33→17:31)
[2020-11-22] MEDS: LISINOPRIL 20 MG TABLET PO SCH (09:33)
[2020-11-22] MEDS: ZINC SULFATE 220 MG CAPSULE PO SCH (09:34)
[2020-11-22] MEDS: METOPROLOL TARTRATE 50 MG TAB PO SCH ×2 (09:34→19:52)
[2020-11-22 09:35] LABS: <PLATELET ESTIMATE> DECREASED; <PLT MORPHOLOGY> NORMAL PLT MORPH; <RBC MORPHOLOGY> NORMAL; BAND#(MANUAL) 0.57 x10^3/uL; BANDS%(MANUAL) 3 % (0-7); MONOS#(MANUAL) 0.57 x10^3/uL (0.3-2.7); MONOS% (MANUAL) 3 % (2-9); SEG#(MANUAL) 17.86 x10^3/uL (1.8-6.8); SEGS% (MANUAL) 94 % (42-75)
[2020-11-22] MEDS: CEFTRIAXONE PMX 1GM/50ML 50 ML IV SCH (11:49)
[2020-11-22] MEDS: AZITHROMYCIN 500 MG in SODIUM CHLORIDE 0.9% 250 ML IV SCH (14:05)
[2020-11-22 14:22] VITALS: BP 136/75
[2020-11-22] MEDS: ATORVASTATIN 10 MG TABLET PO SCH (19:52)
[2020-11-22 19:56] VITALS: BP 141/62
[2020-11-23 01:12] VITALS: BP 132/69
[2020-11-23 08:27] VITALS: BP 135/66
[2020-11-23] MEDS: DIGOXIN 0.125 MG TABLET PO SCH (09:00)
[2020-11-23] MEDS: LISINOPRIL 20 MG TABLET PO SCH (09:33)
[2020-11-23] MEDS: CHOLECALCIFEROL 5,000u TAB PO SCH (09:33)
[2020-11-23] MEDS: TAMSULOSIN 0.4 MG CAP.ER.24H PO SCH (09:33)
[2020-11-23] MEDS: THIAMINE 100MG TABLET PO SCH (09:33)
[2020-11-23] MEDS: RIVAROXABAN 20 MG TABLET PO SCH (09:33)
[2020-11-23] MEDS: ZINC SULFATE 220 MG CAPSULE PO SCH (09:33)
[2020-11-23] MEDS: METOPROLOL TARTRATE 50 MG TAB PO SCH ×2 (09:33→20:06)
[2020-11-23] MEDS: ASCORBIC ACID 500 MG TABLET PO SCH ×2 (09:34→17:15)
[2020-11-23] MEDS: CEFTRIAXONE PMX 1GM/50ML 50 ML IV SCH ×2 (11:39→12:38)
[2020-11-23 12:03] VITALS: BP 159/74
[2020-11-23] MEDS: AZITHROMYCIN 500 MG in SODIUM CHLORIDE 0.9% 250 ML IV SCH (13:31)
[2020-11-23 13:54] LABS: MEAN CORPUSCULAR HEMOGLOBIN 31.3 pg (27.5-34.5); MEAN CORPUSCULAR HGB CONC 34.1 g/dL (33.2-36.2); MEAN PLATELET VOLUME 9.1 fL (7.4-10.4); PLATELET COUNT 226 x10^3/uL (130-400); RED BLOOD COUNT 5.33 x10^6/uL (4.38-5.82); RED CELL DISTRIBUTION WIDTH 13.9 % (9.4-14.8)
[2020-11-23] MEDS: PIPERACILLIN/TAZO/PMX 4.5GM 100 ML IV SCH ×2 (14:12→20:06)
[2020-11-23 14:25] LABS: MD YES
[2020-11-23 14:28] LABS: BAND#(MANUAL) 0.52 x10^3/uL; BANDS%(MANUAL) 2 % (0-7); LYMPH#(MANUAL) 0.79 x10^3/uL (1-3.4); LYMPHS% (MANUAL) 3 % (22-44); MONOS#(MANUAL) 0.52 x10^3/uL (0.3-2.7); MONOS% (MANUAL) 2 % (2-9); SEG#(MANUAL) 24.37 x10^3/uL (1.8-6.8); SEGS% (MANUAL) 93 % (42-75)
[2020-11-23 14:30] LABS: <RBC MORPHOLOGY> NORMAL
[2020-11-23 14:31] LABS: <PLATELET ESTIMATE> ADEQUATE; <PLT MORPHOLOGY> NORMAL PLT MORPH; TOXIC GRAN 1+
[2020-11-23 19:49] VITALS: BP 110/72
[2020-11-23] MEDS: ATORVASTATIN 10 MG TABLET PO SCH (20:06)
[2020-11-23 22:24] LABS: MICROSCOPIC INDICATED
[2020-11-24 00:56] VITALS: BP 151/66
[2020-11-24] MEDS: PIPERACILLIN/TAZO/PMX 4.5GM 100 ML IV SCH ×4 (02:00→20:02)
[2020-11-24 04:41] LABS: ALANINE AMINOTRANSFERASE 50 U/L (12-78); ALBUMIN 2.5 g/dL (3.4-5.0); ANION GAP 9 mmol/L (5-15); CALCIUM 8.3 mg/dL (8.5-10.1); CHLORIDE 107 mmol/L (98-107); CREATININE 1.14 mg/dL (0.7-1.3)
[2020-11-24 04:43] LABS: ALKALINE PHOSPHATASE 83 U/L (45-117); BILIRUBIN,TOTAL 2.1 mg/dL (0.2-1.0); TOTAL PROTEIN 6.6 g/dL (6.4-8.2)
[2020-11-24 06:37] VITALS: BP 154/80
[2020-11-24] MEDS: THIAMINE 100MG TABLET PO SCH (08:22)
[2020-11-24] MEDS: LISINOPRIL 20 MG TABLET PO SCH (08:22)
[2020-11-24] MEDS: RIVAROXABAN 20 MG TABLET PO SCH (08:22)
[2020-11-24] MEDS: TAMSULOSIN 0.4 MG CAP.ER.24H PO SCH (08:23)
[2020-11-24] MEDS: DIGOXIN 0.125 MG TABLET PO SCH (08:23)
[2020-11-24] MEDS: ASCORBIC ACID 500 MG TABLET PO SCH ×2 (08:23→17:00)
[2020-11-24] MEDS: ZINC SULFATE 220 MG CAPSULE PO SCH (08:23)
[2020-11-24] MEDS: CHOLECALCIFEROL 5,000u TAB PO SCH (08:23)
[2020-11-24] MEDS: METOPROLOL TARTRATE 50 MG TAB PO SCH ×2 (08:23→20:03)
[2020-11-24 10:56] LABS: BASOPHILS % (AUTO) 0 % (0-1); EOSINOPHILS % (AUTO) 0 % (1-7); LYMPHOCYTES % (AUTO) 2 % (22-44); MEAN CORPUSCULAR HEMOGLOBIN 31.6 pg (27.5-34.5); MEAN CORPUSCULAR HGB CONC 34.3 g/dL (33.2-36.2); MONOCYTES % (AUTO) 4 % (2-9); NEUTROPHILS % (AUTO) 94 % (42-75); PLATELET COUNT 245 x10^3/uL (130-400); RED BLOOD COUNT 5.36 x10^6/uL (4.38-5.82)
[2020-11-24 11:21] VITALS: BP 160/97
[2020-11-24] MEDS: FLUCONAZOLE 200 MG/100 ML 100 ML IV SCH (11:27)
[2020-11-24 11:43] LABS: MD NO
[2020-11-24 19:10] VITALS: BP 106/66
[2020-11-24] MEDS: ATORVASTATIN 10 MG TABLET PO SCH (20:03)
[2020-11-25 01:09] VITALS: BP 153/81
[2020-11-25] MEDS: PIPERACILLIN/TAZO/PMX 4.5GM 100 ML IV SCH ×4 (02:02→20:03)
[2020-11-25 06:03] LABS: BASOPHILS % (AUTO) 0 % (0-1); EOSINOPHILS % (AUTO) 0 % (1-7); LYMPHOCYTES % (AUTO) 3 % (22-44); MEAN CORPUSCULAR HEMOGLOBIN 31.7 pg (27.5-34.5); MEAN CORPUSCULAR HGB CONC 34.1 g/dL (33.2-36.2); MONOCYTES % (AUTO) 5 % (2-9); NEUTROPHILS % (AUTO) 92 % (42-75); PLATELET COUNT 253 x10^3/uL (130-400); RED BLOOD COUNT 5.17 x10^6/uL (4.38-5.82); RED CELL DISTRIBUTION WIDTH 14.1 % (9.4-14.8)
[2020-11-25 06:05] LABS: MD NO
[2020-11-25 06:15] LABS: CALCIUM 8.5 mg/dL (8.5-10.1); CHLORIDE 112 mmol/L (98-107)
[2020-11-25 06:19] LABS: ANION GAP 8 mmol/L (5-15); CREATININE 0.99 mg/dL (0.7-1.3)
[2020-11-25 06:35] VITALS: BP 157/92
[2020-11-25] MEDS: ZINC SULFATE 220 MG CAPSULE PO SCH (07:54)
[2020-11-25] MEDS: THIAMINE 100MG TABLET PO SCH (07:54)
[2020-11-25] MEDS: TAMSULOSIN 0.4 MG CAP.ER.24H PO SCH (07:54)
[2020-11-25] MEDS: CHOLECALCIFEROL 5,000u TAB PO SCH (07:55)
[2020-11-25] MEDS: ASCORBIC ACID 500 MG TABLET PO SCH ×2 (07:55→16:48)
[2020-11-25] MEDS: LISINOPRIL 20 MG TABLET PO SCH (07:55)
[2020-11-25] MEDS: DIGOXIN 0.125 MG TABLET PO SCH (07:55)
[2020-11-25] MEDS: METOPROLOL TARTRATE 50 MG TAB PO SCH ×2 (07:56→20:04)
[2020-11-25] MEDS: RIVAROXABAN 20 MG TABLET PO SCH (07:56)
[2020-11-25] MEDS: FLUCONAZOLE 200 MG/100 ML 100 ML IV SCH (11:14)
[2020-11-25 11:15] VITALS: BP 149/76
[2020-11-25 12:53] LABS: O2 FLOW 3.5 L/min
[2020-11-25] MEDS: FUROSEMIDE 40 MG/4 ML IV SCH (16:46)
[2020-11-25 19:12] VITALS: BP 136/89
[2020-11-25 19:59] VITALS: BP 140/87
[2020-11-25] MEDS: ATORVASTATIN 10 MG TABLET PO SCH (20:03)
[2020-11-26 01:08] VITALS: BP 151/90
[2020-11-26] MEDS: PIPERACILLIN/TAZO/PMX 4.5GM 100 ML IV SCH ×2 (03:31→11:26)
[2020-11-26 07:26] LABS: BASOPHILS % (AUTO) 0 % (0-1); EOSINOPHILS % (AUTO) 0 % (1-7); LYMPHOCYTES % (AUTO) 3 % (22-44); MEAN CORPUSCULAR HEMOGLOBIN 31.4 pg (27.5-34.5); MEAN CORPUSCULAR HGB CONC 33.6 g/dL (33.2-36.2); MEAN PLATELET VOLUME 9.2 fL (7.4-10.4); MONOCYTES % (AUTO) 5 % (2-9); NEUTROPHILS % (AUTO) 91 % (42-75); PLATELET COUNT 254 x10^3/uL (130-400); RED BLOOD COUNT 5.43 x10^6/uL (4.38-5.82); RED CELL DISTRIBUTION WIDTH 13.9 % (9.4-14.8)
[2020-11-26 07:29] VITALS: BP 141/89
[2020-11-26 07:32] LABS: MD NO
[2020-11-26 07:35] LABS: CHLORIDE 111 mmol/L (98-107)
[2020-11-26 07:46] LABS: ALANINE AMINOTRANSFERASE 85 U/L (12-78); ALBUMIN 2.2 g/dL (3.4-5.0); ALKALINE PHOSPHATASE 91 U/L (45-117); ANION GAP 9 mmol/L (5-15); BILIRUBIN,TOTAL 1.8 mg/dL (0.2-1.0); CALCIUM 8.5 mg/dL (8.5-10.1); TOTAL PROTEIN 6.6 g/dL (6.4-8.2)
[2020-11-26] MEDS: ASCORBIC ACID 500 MG TABLET PO SCH ×2 (08:00→17:00)
[2020-11-26] MEDS: ZINC SULFATE 220 MG CAPSULE PO SCH (09:00)
[2020-11-26] MEDS: TAMSULOSIN 0.4 MG CAP.ER.24H PO SCH (09:00)
[2020-11-26] MEDS: THIAMINE 100MG TABLET PO SCH (09:00)
[2020-11-26] MEDS: CHOLECALCIFEROL 5,000u TAB PO SCH (09:00)
[2020-11-26] MEDS: FUROSEMIDE 40 MG/4 ML IV SCH (10:52)
[2020-11-26] MEDS: METOPROLOL TARTRATE 50 MG TAB PO SCH ×3 (10:53→20:22)
[2020-11-26] MEDS: RIVAROXABAN 20 MG TABLET PO SCH (10:53)
[2020-11-26] MEDS: LISINOPRIL 20 MG TABLET PO SCH (10:53)
[2020-11-26] MEDS: DIGOXIN 0.125 MG TABLET PO SCH (10:54)
[2020-11-26] MEDS ORDERED: POTASSIUM CHLORIDE 20 MEQ TAB.ER.PRT PO ONE (12:00)
[2020-11-26 13:34] VITALS: BP 129/83
[2020-11-26] MEDS: FLUCONAZOLE 200 MG/100 ML 100 ML IV SCH (14:00)
[2020-11-26 17:20] VITALS: BP 137/73
[2020-11-26] MEDS: PIPERACILLIN/TAZO/PMX 3.375GM 50 ML IV SCH ×2 (18:55→23:13)
[2020-11-26 19:05] VITALS: BP 144/84
[2020-11-26] MEDS: ATORVASTATIN 10 MG TABLET PO SCH (20:22)
[2020-11-27 01:22] VITALS: BP 131/72
[2020-11-27] MEDS: PIPERACILLIN/TAZO/PMX 3.375GM 50 ML IV SCH (05:17)
[2020-11-27 06:34] VITALS: BP 129/83
[2020-11-27] MEDS: RIVAROXABAN 15 MG TABLET PO SCH (08:00)
[2020-11-27] MEDS: ZINC SULFATE 220 MG CAPSULE PO SCH (08:16)
[2020-11-27] MEDS: THIAMINE 100MG TABLET PO SCH (08:17)
[2020-11-27] MEDS: CHOLECALCIFEROL 5,000u TAB PO SCH (08:17)
[2020-11-27] MEDS: LISINOPRIL 20 MG TABLET PO SCH (08:17)
[2020-11-27] MEDS: TAMSULOSIN 0.4 MG CAP.ER.24H PO SCH (08:17)
[2020-11-27] MEDS: METOPROLOL TARTRATE 50 MG TAB PO SCH ×3 (08:17→21:32)
[2020-11-27] MEDS: ASCORBIC ACID 500 MG TABLET PO SCH (08:18)
[2020-11-27] MEDS: DIGOXIN 0.125 MG TABLET PO SCH (08:18)
[2020-11-27] MEDS ORDERED: SODIUM CHLORIDE 0.45%, 1,000ML IVBOLUS ONE (13:00)
[2020-11-27] MEDS: FLUCONAZOLE 200 MG/100 ML 100 ML IV SCH (13:24)
[2020-11-27 14:30] VITALS: BP 155/82
[2020-11-27] MEDS ORDERED: PIPERACILLIN/TAZO/PMX 3.375GM 50 ML IV SCH (18:00)
[2020-11-27 19:25] VITALS: BP 165/85
[2020-11-27] MEDS: ATORVASTATIN 10 MG TABLET PO SCH (21:32)
[2020-11-28 02:20] VITALS: BP 155/93
[2020-11-28 06:23] LABS: BASOPHILS % (AUTO) 0 % (0-1); EOSINOPHILS % (AUTO) 0 % (1-7); LYMPHOCYTES % (AUTO) 3 % (22-44); MEAN CORPUSCULAR HEMOGLOBIN 31.5 pg (27.5-34.5); MEAN CORPUSCULAR HGB CONC 33.9 g/dL (33.2-36.2); MEAN PLATELET VOLUME 9.5 fL (7.4-10.4); MONOCYTES % (AUTO) 3 % (2-9); NEUTROPHILS % (AUTO) 93 % (42-75); PLATELET COUNT 277 x10^3/uL (130-400); RED BLOOD COUNT 5.62 x10^6/uL (4.38-5.82)
[2020-11-28 06:27] LABS: ANION GAP 6 mmol/L (5-15); CALCIUM 8.4 mg/dL (8.5-10.1); CHLORIDE 112 mmol/L (98-107)
[2020-11-28 06:29] LABS: CREATININE 0.88 mg/dL (0.7-1.3)
[2020-11-28 06:47] LABS: MD SCAN
[2020-11-28 08:09] VITALS: BP 148/66
[2020-11-28] MEDS: TAMSULOSIN 0.4 MG CAP.ER.24H PO SCH (08:12)
[2020-11-28] MEDS: RIVAROXABAN 15 MG TABLET PO SCH (08:12)
[2020-11-28] MEDS: DIGOXIN 0.125 MG TABLET PO SCH (08:12)
[2020-11-28] MEDS: LISINOPRIL 20 MG TABLET PO SCH (08:12)
[2020-11-28] MEDS: METOPROLOL TARTRATE 50 MG TAB PO SCH ×3 (08:12→22:03)
[2020-11-28] MEDS: FLUCONAZOLE 200 MG/100 ML 100 ML IV SCH (12:54)
[2020-11-28 14:38] VITALS: BP 136/61
[2020-11-28 18:59] VITALS: BP 123/83
[2020-11-28] MEDS: ATORVASTATIN 10 MG TABLET PO SCH (22:03)
[2020-11-29 01:25] VITALS: BP 130/63
[2020-11-29 07:40] VITALS: BP 152/92
[2020-11-29] MEDS: TAMSULOSIN 0.4 MG CAP.ER.24H PO SCH (08:04)
[2020-11-29] MEDS: RIVAROXABAN 15 MG TABLET PO SCH (08:04)
[2020-11-29] MEDS: METOPROLOL TARTRATE 50 MG TAB PO SCH ×3 (08:04→20:00)
[2020-11-29] MEDS: LISINOPRIL 20 MG TABLET PO SCH (08:05)
[2020-11-29] MEDS: DIGOXIN 0.125 MG TABLET PO SCH (08:05)
[2020-11-29 12:26] VITALS: BP 118/54
[2020-11-29] MEDS: FLUCONAZOLE 200 MG/100 ML 100 ML IV SCH (12:59)
[2020-11-29 19:12] VITALS: BP 132/70
[2020-11-29] MEDS: ATORVASTATIN 10 MG TABLET PO SCH (20:00)
[2020-11-30 01:24] VITALS: BP 162/70
[2020-11-30 07:46] VITALS: BP 159/84
[2020-11-30] MEDS: DIGOXIN 0.125 MG TABLET PO SCH (10:12)
[2020-11-30] MEDS: TAMSULOSIN 0.4 MG CAP.ER.24H PO SCH (10:12)
[2020-11-30] MEDS: RIVAROXABAN 15 MG TABLET PO SCH (10:12)
[2020-11-30] MEDS: LISINOPRIL 20 MG TABLET PO SCH (10:13)
[2020-11-30] MEDS: METOPROLOL TARTRATE 50 MG TAB PO SCH ×3 (10:13→22:17)
[2020-11-30 12:00] VITALS: BP 147/81
[2020-11-30] MEDS ORDERED: SCOPOLAMINE 1MG PATCH TD PRN (15:30)
[2020-11-30] MEDS ORDERED: LORazepam 2 MG/ML, 1ML IVPush PRN (15:30)
[2020-11-30] MEDS ORDERED: MORPHINE SULFATE 4 MG/ML, 1ML IVPush PRN (15:30)
[2020-11-30 19:00] VITALS: BP 150/82
[2020-12-01 00:05] VITALS: BP 136/75
[2020-12-01] MEDS: METOPROLOL TARTRATE 50 MG TAB PO SCH ×2 (06:19→17:11)
[2020-12-01 08:23] VITALS: BP 149/86
[2020-12-01 12:03] VITALS: BP 151/75
[2020-12-01 20:11] VITALS: BP 150/63
[2020-12-02 00:19] VITALS: BP 146/86
[2020-12-02] MEDS: METOPROLOL TARTRATE 50 MG TAB PO SCH (00:23)
[2020-12-02 07:43] VITALS: BP 154/93
[2020-12-02] MEDS ORDERED: METOPROLOL 1 MG/ML, 5ML IVPush SCH (08:30)
[2020-12-02] MEDS: MORPHINE SULFATE 4 MG/ML, 1ML IVPush PRN ×7 (12:59→21:03)
[2020-12-02] MEDS: LORazepam 2 MG/ML, 1ML IVPush PRN ×7 (12:59→21:04)
[2020-12-03] MEDS: LORazepam 2 MG/ML, 1ML IVPush PRN ×4 (00:13→08:54)
[2020-12-03] MEDS: MORPHINE SULFATE 4 MG/ML, 1ML IVPush PRN ×4 (00:13→08:54)
== END 2020-12-03 10:45 | disposition expired | DRG 177 ==
LOC: ED 10:28 → SUATTDRO 13:34 → EDIP 13:37 → 4EST 11-17 21:03
PROVIDERS: ADMIT Hospitalist; ATTEND Hospitalist
DX: U07.1 COVID-19 (principal); J12.82 Pneumonia due to coronavirus disease 2019; E43 Unspecified severe protein-calorie malnutrition; G93.41 Metabolic encephalopathy; N17.0 Acute kidney failure with tubular necrosis; I24.8 Other forms of acute ischemic heart disease; D68.69 Other thrombophilia; I48.92 Unspecified atrial flutter; Z51.5 Encounter for palliative care; Z66 Do not resuscitate; E78.5 Hyperlipidemia, unspecified; F03.90 Unspecified dementia, unspecified severity, without behavioral disturbance, psychotic disturbance, mood disturbance, and anxiety; I10 Essential (primary) hypertension; I48.91 Unspecified atrial fibrillation; Z78.1 Physical restraint status; Z79.01 Long term (current) use of anticoagulants; Z85.038 Personal history of other malignant neoplasm of large intestine; Z85.46 Personal history of malignant neoplasm of prostate; Z86.73 Personal history of transient ischemic attack (TIA), and cerebral infarction without residual deficits; Z95.0 Presence of cardiac pacemaker; R74.01 Elevation of levels of liver transaminase levels
CPT/HCPCS: 36415; 36600; 70450; 71045; 71275; 80048; 80053; 80162; 81001; 82140; 82728; 82803; 83605; 83615; 83735; 84100; 84145; 84443; 84484; 85025; 85379; 85610; 86140; 87040; 93005; 93306; 96374; 96375; 99285; G0378; J0295; J0456; J0696; J1100; J1940; J2543; J3370; J7042; Q9967; J1450; J2060; J2270; J7040; J7050; U0003